=== PATIENT | female | born 1950 | race Hispanic/Latino ===

== ENCOUNTER 2016-06-24 09:06 | Inpatient (IN) | payer MEDICARE, BC ==
[~2016-06-24] VITALS: Ht 172.7 cm; Wt 82.3 kg
[2016-06-24] MEDS ORDERED: MORPHINE 4 MG/ML 1ML SYRINGE As Ordered ONE (10:19)
[2016-06-24] MEDS ORDERED: ONDANSETRON 4MG/2ML VIAL (J2405) As Ordered ONE ×2 (10:19→13:32)
[2016-06-24 10:20] LABS: BASO # 0.3 K/mm3 (0.0-0.2); BASO % 2.3 % (0.0-1.0); EOS # 0.1 K/mm3 (0.0-0.50); EOS % 1.1 % (0.0-3.0); LARGE UNSTAINED CELL # 0.1 K/mm3 (0.0-0.4); LARGE UNSTAINED CELL % 0.5 % (0.0-4.0); LYMPH # 0.1 K/mm3 (1.5-4.5); LYMPH % 0.8 % (24.0-44.0); MEAN CORPUSCULAR HEMOGLOBIN 32.3 pg (27.0-33.0); MEAN CORPUSCULAR HGB CONC 32.4 g/dl (32.0-36.5); MEAN CORPUSCULAR VOLUME 99.8 fl (80.0-96.0); MONO # 0.6 K/mm3 (0.0-0.8); MONO % 4.9 % (0.0-5.0); NEUTROPHILS # 10.3 K/mm3 (1.8-7.7); NEUTROPHILS % 90.4 % (36.0-66.0); PLATELET COUNT, AUTOMATED 203 k/mm3 (150-450); RED CELL DISTRIBUTION WIDTH 16.1 % (11.5-14.5); WHITE BLOOD COUNT 11.3 K/mm3 (4.0-10.0)
[2016-06-24 10:51] LABS: ALBUMIN 3.7 GM/DL (3.2-5.2); ALBUMIN/GLOBULIN RATIO 0.84 (1.00-1.93); BILIRUBIN,DIRECT 0.2 MG/DL (0.0-0.2); BILIRUBIN,TOTAL 0.6 MG/DL (0.2-1.0); CALCIUM LEVEL 8.7 MG/DL (8.8-10.2); CREATININE FOR GFR 9.13 MG/DL (0.55-1.02); GLOMERULAR FILTRATION RATE 4.6 (>45); TOTAL PROTEIN 8.1 GM/DL (6.4-8.2)
[2016-06-24 10:52] LABS: POTASSIUM SERUM 5.7 MEQ/L (3.5-5.1)
--- NOTE | 2016-06-24 11:54 | REP ---
CT abdomen pelvis without contrast 06/24/2016 Indication right flank pain, possible kidney stone Comparison: None Findings: There are moderate right and small left basilar pleural effusions. There is bibasilar compressive atelectasis, right greater than left. There is pulmonary venous hypertension in the included portions of the lungs. Cardiac silhouette is borderline in size and there are moderate coronary artery calcifications. There is also calcification versus prosthetic valve within the aortic root, incompletely included in view. Liver is enlarged 21.4 cm cranial caudal dimension, without fatty infiltration or focal lesion. Spleen, pancreas gallbladder are unremarkable. There is no biliary dilatation. Adrenal glands are normal. Diffuse atherosclerotic changes noted in the aorta, mesenteric ,and renal arteries consistent with history of chronic renal failure. Kidneys are moderately atrophic bilaterally and there are multiple bilateral renal cortical cysts. There is no hydronephrosis bilaterally or obstructing ureteral calculi. No pathologically enlarged retroperitoneal nodes. Stomach, small bowel are within normal limits. Appendix is not visualized and may be surgically absent. Bladder is contracted uterus is absent mild mural thickening is seen majority of the left colon and within the rectum with some sparing of rectosigmoid colon this is most likely secondary to some/under distension and less likely colitis. Soft tissue prominence is seen within the rectum/anus of 3 cm diameter. There is no free air or ascites Impression: Small to moderate right and small left pleural effusions, bibasilar atelectasis, right greater than left. Pulmonary t venous hypertension Kidneys without hydronephrosis or obstructing ureteral calculi bilaterally. There is moderate bilateral renal cortical atrophy and multiple bilateral renal cysts some of which are complex for which ultrasound evaluation may be considered. Mild mural thickening seen in the majority of left colon is most compatible with spasm/under distension. Mild colitis considered less likely. 3 cm area of soft tissue prominence within the rectum for which clinical follow-up is recommended. Hepatomegaly, liver 21.2 cm in length. Case discussed with Dr. Correia in the ED on 06/24/16 at 1140 am. Signed by Yuliya Mccabe MD 06/24/2016 11:46 A
[2016-06-24] MEDS ORDERED: ACETAMINOPHEN 325 MG TAB As Ordered ONE (13:26)
[2016-06-24] MEDS ORDERED: cefTRIAXone SOD 1 GM VIAL (J0696) As Ordered ONE (15:23)
[2016-06-24] MEDS ORDERED: TEMA15CA2 PO (16:44)
[2016-06-24] MEDS ORDERED: LOSA100T36 PO (16:44)
[2016-06-24] MEDS ORDERED: AMLO5TAB2 PO (16:44)
[2016-06-24] MEDS ORDERED: SIMV40TA2 PO (16:44)
[2016-06-24] MEDS ORDERED: HYDR25TAB PO (16:44)
[2016-06-24] MEDS ORDERED: LABE20TAB PO (16:44)
[2016-06-24] MEDS ORDERED: GLIP10TA6 PO (16:44)
[2016-06-24] MEDS ORDERED: SENS60TA PO (16:44)
[2016-06-24] MEDS ORDERED: RENATAB5 PO (16:44)
[2016-06-24] MEDS ORDERED: VELP5CHW PO (16:44)
--- NOTE | 2016-06-24 16:51 | EDDOCDS ---
Physician Documentation [facility] Name: Sylvia Aguirre Age: 66 yrs Sex: Female : 1950 Arrival Date: 06/24/2016 Time: 09:06 Bed 10 Private MD: Unknown, Family Dr Disposition: 06/24/16 15:18 Hospitalization ordered by Omid Valdez for Inpatient Admission. Preliminary diagnosis are Vomiting, Fever, unspecified. - Bed requested for PCU. - Status is Inpatient Admission. ck1 - Condition is Stable. - Problem is new. - Symptoms have improved. Historical: - Allergies: no known allergies; - Home Meds: 1. Felicita-Bobby 0.8 mg oral tab daily 2. glipizide 10 mg Oral tab 1 tab once daily 3. labetalol 200 mg Oral tab 2 tabs 2 times per day 4. Sensipar 60 mg oral tab 1 tab once daily 5. simvastatin 40 mg Oral tab 1 tab once daily 6. hydrochlorothiazide 25 mg Oral tab 1 tab once daily 7. losartan 100 mg oral tab 1 tab once daily 8. amlodipine 5 mg Oral tab 1 tab once daily - PMHx: Hypertension; High Cholesterol; Renal Failure with Dialysis; Diabetes - NIDDM: controlled; - PSHx: Stents, Coronary; Dialysis Graft Construction, Arm; ; left toe amputation; - Social history: Smoking status: Patient states was never smoker of tobacco. No barriers to communication noted, The patient speaks fluent Niuean, Speaks appropriately for age. - Family history: Not pertinent. - : The pt / caregiver states he / she is not on anticoagulants. Home medication list is obtained from the patient. - Exposure Risk Screening:: None identified. Vital Signs: 06/24 09:08 BP 228 / 87; Pulse 99; Resp 18 S; Temp 99.6(O); Pulse Ox 93% on R/A; Weight 79.38 kg / dd6 175 lbs (R); Height 5 ft. 8 in. (172.72 cm) (R); 09:25 BP 184 / 80 RA (man/); mlb1 11:19 BP 201 / 86; Pulse 92; Resp 16; Temp 100.0(O); Pulse Ox 91% on 2 lpm NC; Pain 7/10; ck1 13:07 Pulse 96 MON; Pulse Ox 93% ; ck1 13:21 BP 155 / 83 (auto/); ck1 13:21 Resp 16; Temp 101.3; ck1 14:47 BP 196 / 82 (auto/); ck1 14:47 Pulse 92 MON; Pulse Ox 90% ; ck1 15:02 BP 192 / 80 (auto/); ck1 15:02 Pulse 92 MON; Pulse Ox 92% ; ck1 15:16 Pulse 90 MON; Pulse Ox 94% ; ck1 15:17 BP 178 / 77 (auto/); ck1 15:32 BP 177 / 58 (auto/); ck1 15:32 Pulse 92 MON; Pulse Ox 100% ; ck1 15:42 BP 175 / 73 (auto/); ck1 15:42 Pulse 92 MON; Pulse Ox 95% ; ck1 15:45 Temp 99.8(O); ck1 15:46 Resp 18; Temp 99.8(O); Pulse Ox 97% 2 lpm ; ck1 15:46 Pulse 90 MON; Pulse Ox 96% ; ck1 15:47 BP 195 / 80 (auto/); ck1 16:01 Pulse 86 MON; Pulse Ox 100% ; ck1 16:02 BP 172 / 77 (auto/); ck1 16:17 BP 162 / 72 (auto/); ck1 16:18 Pulse 88 MON; Pulse Ox 94% ; ck1 16:32 Pulse 86 MON; Pulse Ox 100% ; ck1 16:46 BP 159 / 73; Pulse 86; Resp 18; Temp 99.3(O); Pulse Ox 98% on 1 lpm NC; Pain 0/10; ck1 09:08 Body Mass Index 26.61 (79.38 kg, 172.72 cm) dd6 MDM: 09:55 Undress patient appropriately for examination ordered. sd1 09:56 Amylase Ordered. EDMS 09:56 Basic Metabolic Profile Ordered. EDMS 09:56 CBC with Diff Ordered. EDMS 09:56 Lipase Ordered. EDMS 09:56 Liver Profile Ordered. EDMS 09:56 NOTHING BY MOUTH+DIET ordered. EDMS 09:56 ECG WITH READING ER PHYS+CARDIAG ordered. EDMS 10:14 morphine 4 mg IVP every 15 minutes; Document pain score/vitals after each dose (Hold if sd1 SBP < 90mmHg) x2 ordered. 10:14 Ondansetron 4 mg IVP once ordered. sd1 10:14 CT ABD & PELVIS: No Contrast Ordered. EDMS 10:27 CBC with Diff Reviewed. sd1 10:48 Financial registration complete. pm4 10:54 Basic Metabolic Profile Reviewed. sd1 10:54 Liver Profile Reviewed. sd1 10:54 Amylase Reviewed. sd1 10:54 Lipase Reviewed. sd1 11:39 [facility] Payment Agreement was scanned into [employer] and attached to record. pm4 13:08 CT ABD & PELVIS: No Contrast Reviewed. sd1 13:24 Acetaminophen Tablet 650 mg PO once ordered. sd1 13:31 -Blood Culture (Adults Only), peripheral from different site, or from device/port/PICC sd1 etc. if present ordered. 13:31 Ondansetron 4 mg IVP once ordered. sd1 13:32 Lactic Acid (Owens tube on ice) Ordered. EDMS 13:32 -Blood Culture Ordered. EDMS 13:32 UA Ordered. EDMS 13:32 Urine Culture Ordered. EDMS 13:58 -Blood Culture (Adults Only), peripheral from different site, or from device/port/PICC jlf etc. if present complete. 14:00 BLOOD CULTURES Ordered. EDMS 15:03 Lactic Acid (Owens tube on ice) Reviewed. sd1 15:03 UA Reviewed. sd1 15:17 cefTRIAXone 1 grams IVPB once over 30 mins; dilute in 50mL of NS or D5W ordered. sd1 15:35 Admission / Observation Status ordered. EDMS Administered Medications: 10:25 Drug: morphine 4 mg [morphine 4 mg/mL intravenous cartridge (1 mL)] Route: IVP; Site: ck1 right antecubital; 11:19 Follow up: BP 201 / 86; Pulse 92 bpm; Resp 16 bpm; Temp 100.0 Oral; Pulse Ox 91% 2 lpm ck1 Nasal Cannula; Pain 7/10 Adult; Response: Confirmed pt not driving.; No Adverse Reaction; Pain is decreased 10:25 Drug: Ondansetron 4 mg [ondansetron HCl 2 mg/mL intravenous solution (2 mL)] Route: ck1 IVP; Site: right antecubital; 13:36 Drug: Ondansetron 4 mg [ondansetron HCl 2 mg/mL intravenous solution (2 mL)] Route: ck1 IVP; Site: right antecubital; 14:14 Drug: Acetaminophen 650 mg [acetaminophen 325 mg tablet (2 tabs)] Route: PO; hs1 15:45 Follow up: Temp 99.8 Oral; Response: Temperature is decreased ck1 15:32 Drug: cefTRIAXone 1 grams [ceftriaxone 1 gram solution for injection] Route: IVPB; ck1 Infused Over: 30 mins; Site: right antecubital; 16:47 Follow up: IV Status: Completed infusion ck1 Signatures: Dispatcher [employer] EDZita Antonio MD MD sd1 Cici Arredondo, [employer] lbd Ronald Thibodeaux RN RN mlb1 Angelica Fry RN RN ck1 Maurice Guillaume, DRY PRESS OPERATOR DRY PRESS OPERATOR jlf Nnamdi Jimenez, Reg Reg pm4 Janell Delgado RN hs1 The chart was reviewed and I authenticate all verbal orders and agree with the evaluation and treatment provided.Attachments: 11:39 [facility] Payment Agreement pm4 MTDD
--- NOTE | 2016-06-24 16:51 | EDDOCDS ---
Nurse's Notes [facility] Name: Sylvia Aguirre Age: 66 yrs Sex: Female : 1950 Arrival Date: 06/24/2016 Time: 09:06 Bed 10 Private MD: Angel, Family Dr Diagnosis: Vomiting;Fever, unspecified Presentation: 06/24 09:15 Presenting complaint: Patient states: Low back pain and nausea began this am. Acute mlb1 neurological deficits are not present. Mechanism of Injury: No Mechanism of Injury. Adult Sepsis Screening: The patient does not have new or worsening altered mentation. Patient's respiratory rate is less than 22. Systolic blood pressure is greater than 100. Patient has a qSOFA score of 0- Negative Sepsis Screen. Suicide/Homicide risk assessment- the patient denies having any suicidal and/or homicidal ideations and does not present with any other emotional, behavioral or mental health complaints. Status: Patient is not a service specialist or dependent. Transition of care: patient was not received from another setting of care. 09:15 Acuity: SG Level 3 mlb1 09:15 Method Of Arrival: Walkin/Carried/Asstd mlb1 Triage Assessment: 09:21 General: Appears in no apparent distress, Behavior is appropriate for age, cooperative. mlb1 Pain: Location: low back area Pain currently is 8 out of 10 on a pain scale. Pt Declines HIV testing. GI: Reports nausea, vomiting. Historical: - Allergies: no known allergies; - Home Meds: 1. Felicita-Bobby 0.8 mg oral tab daily 2. glipizide 10 mg Oral tab 1 tab once daily 3. labetalol 200 mg Oral tab 2 tabs 2 times per day 4. Sensipar 60 mg oral tab 1 tab once daily 5. simvastatin 40 mg Oral tab 1 tab once daily 6. hydrochlorothiazide 25 mg Oral tab 1 tab once daily 7. losartan 100 mg oral tab 1 tab once daily 8. amlodipine 5 mg Oral tab 1 tab once daily - PMHx: Hypertension; High Cholesterol; Renal Failure with Dialysis; Diabetes - NIDDM: controlled; - PSHx: Stents, Coronary; Dialysis Graft Construction, Arm; ; left toe amputation; - Social history: Smoking status: Patient states was never smoker of tobacco. No barriers to communication noted, The patient speaks fluent Urdu, Speaks appropriately for age. - Family history: Not pertinent. - : The pt / caregiver states he / she is not on anticoagulants. Home medication list is obtained from the patient. - Exposure Risk Screening:: None identified. Screenin:14 Screening information is obtained from the patient. Fall risk: No risks identified. ck1 Assistance ADL's: requires no assistance with activities of daily living. Abuse/DV Screen: The patient / caregiver reports he/she is: not in a situation that causes fear, pain or injury. Nutritional screening: No deficits noted. Advance Directives: Currently, there is no health care proxy. home support is adequate. Assessment: 10:14 General: Appears in no apparent distress, comfortable, Behavior is appropriate for age, ck1 cooperative. Pain: Location: right flank Pain currently is 8 out of 10 on a pain scale. Neurological: Level of Consciousness is awake, alert, obeys commands, Oriented to person, place, time. Respiratory: Respiratory effort is unlabored, Respiratory pattern is regular, symmetrical. GI: Reports nausea. Derm: Skin is intact, is healthy with good turgor, Skin is pink, warm & dry. Musculoskeletal: Circulation, motion, and sensation intact Range of motion intact in all extremities. 11:20 General: Appears to be sleeping. Behavior is appropriate for age, cooperative, quiet. ck1 Pain: Location: right flank Pain currently is 7 out of 10 on a pain scale. Neurological: Level of Consciousness is awake, alert, obeys commands, Oriented to person, place, time. Respiratory: Respiratory effort is unlabored, Respiratory pattern is regular, symmetrical. GI: Reports nausea, Denies vomiting. Derm: Skin is intact, Skin is pink, warm & dry. 12:20 General: Appears in no apparent distress, comfortable, Behavior is appropriate for age, ck1 cooperative, quiet. Neurological: Level of Consciousness is awake, alert, obeys commands, Oriented to person, place, time. Respiratory: Respiratory effort is unlabored, Respiratory pattern is regular, symmetrical. GI: Reports nausea, Denies vomiting. Derm: Skin is intact, is healthy with good turgor, Skin is pink, warm & dry. Musculoskeletal: Circulation, motion, and sensation intact Range of motion intact in all extremities. 14:16 General: Appears in no apparent distress, Behavior is appropriate for age, cooperative, hs1 Pt resting in stretcher tolerating Tylenol at present. States nausea dissipated. . 14:49 General: Appears in no apparent distress, to be sleeping. Behavior is appropriate for ck1 age, cooperative, quiet. Pain: Location: right flank Pain currently is 5 out of 10 on a pain scale. Neurological: Level of Consciousness is awake, alert, obeys commands, Oriented to person, place, time. Respiratory: Respiratory effort is unlabored, Respiratory pattern is regular, symmetrical. GI: Denies nausea. Derm: Skin is intact, Skin is pink, warm & dry. 15:47 General: Appears in no apparent distress, comfortable, Behavior is appropriate for age, ck1 cooperative. Pain: Location: right flank Pain currently is 5 out of 10 on a pain scale. Neurological: Level of Consciousness is awake, alert, obeys commands, Oriented to person, place, time. Cardiovascular: Rhythm is sinus rhythm Chest pain is denied. Respiratory: Respiratory effort is unlabored, Respiratory pattern is regular, symmetrical. GI: Reports anorexia, nausea. Derm: Skin is intact, Skin is pink, warm & dry. Musculoskeletal: Circulation, motion, and sensation intact Range of motion intact in all extremities. 16:49 General: Appears in no apparent distress, comfortable, Behavior is appropriate for age, ck1 cooperative. Pain: Denies pain. Neurological: Level of Consciousness is awake, alert, obeys commands, Oriented to person, place, time. Cardiovascular: Rhythm is sinus rhythm. Respiratory: Respiratory effort is unlabored, Respiratory pattern is regular, symmetrical. GI: No deficits noted. Derm: Skin is pink, warm & dry. Musculoskeletal: Circulation, motion, and sensation intact Range of motion intact in all extremities. Vital Signs: 09:08 BP 228 / 87; Pulse 99; Resp 18 S; Temp 99.6(O); Pulse Ox 93% on R/A; Weight 79.38 kg dd6 (R); Height 5 ft. 8 in. (172.72 cm) (R); 09:25 BP 184 / 80 RA (man/); mlb1 11:19 BP 201 / 86; Pulse 92; Resp 16; Temp 100.0(O); Pulse Ox 91% on 2 lpm NC; Pain 7/10; ck1 13:07 Pulse 96 MON; Pulse Ox 93% ; ck1 13:21 BP 155 / 83 (auto/); ck1 13:21 Resp 16; Temp 101.3; ck1 14:47 BP 196 / 82 (auto/); ck1 14:47 Pulse 92 MON; Pulse Ox 90% ; ck1 15:02 BP 192 / 80 (auto/); ck1 15:02 Pulse 92 MON; Pulse Ox 92% ; ck1 15:16 Pulse 90 MON; Pulse Ox 94% ; ck1 15:17 BP 178 / 77 (auto/); ck1 15:32 BP 177 / 58 (auto/); ck1 15:32 Pulse 92 MON; Pulse Ox 100% ; ck1 15:42 BP 175 / 73 (auto/); ck1 15:42 Pulse 92 MON; Pulse Ox 95% ; ck1 15:45 Temp 99.8(O); ck1 15:46 Resp 18; Temp 99.8(O); Pulse Ox 97% 2 lpm ; ck1 15:46 Pulse 90 MON; Pulse Ox 96% ; ck1 15:47 BP 195 / 80 (auto/); ck1 16:01 Pulse 86 MON; Pulse Ox 100% ; ck1 16:02 BP 172 / 77 (auto/); ck1 16:17 BP 162 / 72 (auto/); ck1 16:18 Pulse 88 MON; Pulse Ox 94% ; ck1 16:32 Pulse 86 MON; Pulse Ox 100% ; ck1 16:46 BP 159 / 73; Pulse 86; Resp 18; Temp 99.3(O); Pulse Ox 98% on 1 lpm NC; Pain 0/10; ck1 09:08 Body Mass Index 26.61 (79.38 kg, 172.72 cm) dd6 Vitals: 09:08 Log In Time: June 24, 2016 at 09:06. dd6 ED Course: 09:08 Patient visited by Dipesh Elizondo PCA. dd6 09:08 Unknown, Family Dr is Private Physician. dd6 09:08 Patient moved to Waiting dd6 09:09 Patient moved to Pre RCE dd6 09:15 Patient visited by Ronald Thibodeaux, YENNIFER. mlb1 09:16 Triage Initiated mlb1 09:21 Patient visited by Ronald Thibodeaux, YENNIFER. mlb1 09:21 Patient moved to Triage 1 mlb1 09:29 Patient moved to 10 ct3 09:52 Patient visited by Maurice Guillaume PCA. jlf 09:58 EKG done. (by ED staff). Reviewed by Zita Echeverria MD. jlf 10:02 Patient visited by Maurice Guillaume PCA. jlf 10:02 Patient visited by Maurice Guillaume PCA. jlf 10:07 Zita Echeverria MD is Attending Physician. sd1 10:07 Patient visited by Zita Echeverria MD. sd1 10:13 Amylase Sent. ck1 10:13 Basic Metabolic Profile Sent. ck1 10:13 CBC with Diff Sent. ck1 10:13 Lipase Sent. ck1 10:14 The patient / caregiver is instructed regarding the plan of care and ED course. ck1 10:14 Liver Profile Sent. ck1 10:15 Inserted saline lock: 20 gauge in right antecubital area and blood collected. The ck1 patient tolerated the procedure well. 10:24 Patient visited by Angelica Fry RN. ck1 10:40 Patient visited by Angelica Fry RN. ck1 11:18 Angelica Fry RN is Primary Nurse. ck1 11:19 Patient visited by Angelica Fry RN. ck1 11:20 O2 via nasal cannula \T\ 2L/min. ck1 11:36 Patient name changed from Sylvia\S\\S\Aguirre\S\ to Sylvia\S\ \S\Aguirre. EDMS 11:39 [facility] Payment Agreement was scanned into [employer] and attached to record. pm4 11:50 Patient visited by Angelica Fry RN. ck1 12:18 Patient visited by Maurice Guillaume PCA. jlf 12:37 CT ABD & PELVIS: No Contrast Returned. EDMS 12:47 Primary Nurse role handed off by Angelica Fry,YENNIFER mk4 12:52 Angelica Fry RN is Primary Nurse. ck1 12:52 Patient visited by Angelica Fry RN. ck1 13:08 Jelena Hogan MD is Referral Physician. sd1 13:25 No procedures done that require assistance. ck1 13:31 Patient visited by Angelica Fry RN. ck1 13:57 Urine Culture Sent. jml1 14:15 Patient visited by Angelica Fry RN. ck1 14:37 Patient visited by Angelica Fry RN. ck1 14:43 BLOOD CULTURES Sent. jlf 14:49 Patient visited by Angelica Fry RN. ck1 14:49 O2 via nasal cannula \T\ 4L/min. ck1 15:05 Response to O2 therapy: Other 92% on 4L via NC. ck1 15:14 Patient visited by Angelica Fry RN. ck1 15:18 Omid Valdez DO is Hospitalizing Provider. sd1 15:45 Patient visited by Angelica Fry RN. ck1 Administered Medications: 10:25 Drug: morphine 4 mg [morphine 4 mg/mL intravenous cartridge (1 mL)] Route: IVP; Site: ck1 right antecubital; 11:19 Follow up: BP 201 / 86; Pulse 92 bpm; Resp 16 bpm; Temp 100.0 Oral; Pulse Ox 91% 2 lpm ck1 Nasal Cannula; Pain 7/10 Adult; Response: Confirmed pt not driving.; No Adverse Reaction; Pain is decreased 10:25 Drug: Ondansetron 4 mg [ondansetron HCl 2 mg/mL intravenous solution (2 mL)] Route: ck1 IVP; Site: right antecubital; 13:36 Drug: Ondansetron 4 mg [ondansetron HCl 2 mg/mL intravenous solution (2 mL)] Route: ck1 IVP; Site: right antecubital; 14:14 Drug: Acetaminophen 650 mg [acetaminophen 325 mg tablet (2 tabs)] Route: PO; hs1 15:45 Follow up: Temp 99.8 Oral; Response: Temperature is decreased ck1 15:32 Drug: cefTRIAXone 1 grams [ceftriaxone 1 gram solution for injection] Route: IVPB; ck1 Infused Over: 30 mins; Site: right antecubital; 16:47 Follow up: IV Status: Completed infusion ck1 Order Results: Lab Order: Amylase; SPEC'M 06/24/16 10:09 Test: AMYLASE; Value: 35; Range: 25-115; Units: U/L; Status: F Lab Order: Basic Metabolic Profile; SPEC'M 06/24/16 10:09 Test: GLUCOSE, FASTING; Value: 203; Range: 80-110; Abnormal: Above high normal; Units: MG/DL; Status: F Test: BLOOD UREA NITROGEN; Value: 56; Range: 7-18; Abnormal: Above high normal; Units: MG/DL; Status: F Test: CREATININE FOR GFR; Value: 9.13; Range: 0.55-1.02; Abnormal: Above high normal; Units: MG/DL; Status: F Test: GLOMERULAR FILTRATION RATE; Value: 4.6; Range: >45; Abnormal: Below low normal; Status: F Test: SODIUM LEVEL; Value: 136; Range: 136-145; Units: MEQ/L; Status: F Test: POTASSIUM SERUM; Value: 5.7; Range: 3.5-5.1; Abnormal: Above high normal; Units: MEQ/L; Status: F Test: CHLORIDE LEVEL; Value: 98; Range: 98-107; Units: MEQ/L; Status: F Test: CARBON DIOXIDE LEVEL; Value: 26; Range: 21-32; Units: MEQ/L; Status: F Test: ANION GAP; Value: 12; Range: 8-16; Units: MEQ/L; Status: F Test: CALCIUM LEVEL; Value: 8.7; Range: 8.8-10.2; Abnormal: Below low normal; Units: MG/DL; Status: F Test Note: ; Units are mL/min/1.73 m2 Chronic Kidney Disease Staging per NKF: Stage I & II GFR >=60 Normal to Mildly Decreased Stage III GFR 30-59 Moderately Decreased Stage IV GFR 15-29 Severely Decreased Stage V GFR <15 Very Little GFR Left ESRD GFR <15 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 Lab Order: CBC with Diff; SPEC'M 06/24/16 10:09 Test: WHITE BLOOD COUNT; Value: 11.3; Range: 4.0-10.0; Abnormal: Above high normal; Units: K/mm3; Status: F Test: RED BLOOD COUNT; Value: 3.48; Range: 4.00-5.40; Abnormal: Below low normal; Units: M/mm3; Status: F Test: HEMOGLOBIN; Value: 11.3; Range: 12.0-16.0; Abnormal: Below low normal; Units: g/dl; Status: F Test: HEMATOCRIT; Value: 34.8; Range: 36.0-47.0; Abnormal: Below low normal; Units: %; Status: F Test: MEAN CORPUSCULAR VOLUME; Value: 99.8; Range: 80.0-96.0; Abnormal: Above high normal; Units: fl; Status: F Test: MEAN CORPUSCULAR HEMOGLOBIN; Value: 32.3; Range: 27.0-33.0; Units: pg; Status: F Test: MEAN CORPUSCULAR HGB CONC; Value: 32.4; Range: 32.0-36.5; Units: g/dl; Status: F Test: RED CELL DISTRIBUTION WIDTH; Value: 16.1; Range: 11.5-14.5; Abnormal: Above high normal; Units: %; Status: F Test: PLATELET COUNT, AUTOMATED; Value: 203; Range: 150-450; Units: k/mm3; Status: F Test: NEUTROPHILS %; Value: 90.4; Range: 36.0-66.0; Abnormal: Above high normal; Units: %; Status: F Test: LYMPH %; Value: 0.8; Range: 24.0-44.0; Abnormal: Below low normal; Units: %; Status: F Test: MONO %; Value: 4.9; Range: 0.0-5.0; Units: %; Status: F Test: EOS %; Value: 1.1; Range: 0.0-3.0; Units: %; Status: F Test: BASO %; Value: 2.3; Range: 0.0-1.0; Abnormal: Above high normal; Units: %; Status: F Test: LARGE UNSTAINED CELL %; Value: 0.5; Range: 0.0-4.0; Units: %; Status: F Test: NEUTROPHILS #; Value: 10.3; Range: 1.8-7.7; Abnormal: Above high normal; Units: K/mm3; Status: F Test: LYMPH #; Value: 0.1; Range: 1.5-4.5; Abnormal: Below low normal; Units: K/mm3; Status: F Test: MONO #; Value: 0.6; Range: 0.0-0.8; Units: K/mm3; Status: F Test: EOS #; Value: 0.1; Range: 0.0-0.50; Units: K/mm3; Status: F Test: BASO #; Value: 0.3; Range: 0.0-0.2; Abnormal: Above high normal; Units: K/mm3; Status: F Test: LARGE UNSTAINED CELL #; Value: 0.1; Range: 0.0-0.4; Units: K/mm3; Status: F Lab Order: Lipase; [facility] 06/24/16 10:09 Test: LIPASE; Value: 119; Range: 73-393; Units: U/L; Status: F Lab Order: Liver Profile; [facility] 10[facility]09 Test: AST/SGOT; Value: 12; Range: 15-37; Abnormal: Below low normal; Units: U/L; Status: F Test: ALT/SGPT; Value: 22; Range: 12-78; Units: U/L; Status: F Test: ALKALINE PHOSPHATASE; Value: 177; Range: 45-117; Abnormal: Above high normal; Units: U/L; Status: F Test: BILIRUBIN,TOTAL; Value: 0.6; Range: 0.2-1.0; Units: MG/DL; Status: F Test: BILIRUBIN,DIRECT; Value: 0.2; Range: 0.0-0.2; Units: MG/DL; Status: F Test: TOTAL PROTEIN; Value: 8.1; Range: 6.4-8.2; Units: GM/DL; Status: F Test: ALBUMIN; Value: 3.7; Range: 3.2-5.2; Units: GM/DL; Status: F Test: ALBUMIN/GLOBULIN RATIO; Value: 0.84; Range: 1.00-1.93; Abnormal: Below low normal; Status: F Lab Order: Lactic Acid (Owens tube on ice); 06/24/16 13:49 Test: LACTIC ACID LEVEL, LACTATE; Value: 2.1; Range: 0.4-2.0; Abnormal: Above high normal; Units: MMOL/L; Status: F Lab Order: UA; 06/24/16 13:49 Test: APPEARANCE, URINE; Value: CLEAR; Range: CLEAR; Status: F Test: COLOR, URINE; Value: YELLOW; Range: YELLOW; Status: F Test: PH,URINE; Value: 8.0; Range: 5.0-9.0; Units: UNITS; Status: F Test: SPECIFIC GRAVITY URINE AUTO; Value: 1.007; Range: 1.002-1.035; Status: F Test: PROTEIN, URINE AUTO; Value: 3+; Range: NEGATIVE; Abnormal: Above high normal; Units: mg/dL; Status: F Test: GLUCOSE, URINE (UA) AUTO; Value: 3+; Range: NEGATIVE; Abnormal: Above high normal; Units: mg/dL; Status: F Test: KETONE, URINE AUTO; Value: NEGATIVE; Range: NEGATIVE; Units: mg/dL; Status: F Test: UROBILINOGEN, URINE AUTO; Value: 0.2; Range: 0.0-2.0; Units: mg/dL; Status: F Test: BILIRUBIN, URINE AUTO; Value: NEGATIVE; Range: NEGATIVE; Status: F Test: NITRITE, URINE AUTO; Value: NEGATIVE; Range: NEGATIVE; Status: F Test: LEUKOCYTE ESTERASE, URINE AUTO; Value: TRACE; Range: NEGATIVE; Abnormal: Above high normal; Status: F Test: BLOOD, URINE BLOOD; Value: NEGATIVE; Range: NEGATIVE; Status: F Test: WBC, URINE AUTO; Value: 1; Range: 0-3; Units: /HPF; Status: F Test: RBC, URINE AUTO; Value: 1; Range: 0-3; Units: /HPF; Status: F Test: BACTERIA, URINE AUTO; Value: 1+; Range: NEGATIVE; Abnormal: Above high normal; Status: F Test: SQUAMOUS EPITHELIAL CELL UR AU; Value: 3; Range: 0-6; Units: /HPF; Status: F Test: HYALINE CAST, URINE AUTO; Value: 0; Range: 0-1; Units: /LPF; Status: F Radiology Order: CT ABD & PELVIS: No Contrast Test: CT ABD & PELVIS: No Contrast REASON FOR EXAMINATION: right FP ?stone; CT abdomen pelvis without contrast 06/24/2016; ; Indication right flank pain, possible kidney stone; ; Comparison: None; ; Findings: There are moderate right and small left basilar pleural effusions.; There is bibasilar compressive atelectasis, right greater than left. There is; pulmonary venous hypertension in the included portions of the lungs. Cardiac; silhouette is borderline in size and there are moderate coronary artery; calcifications. There is also calcification versus prosthetic valve within the; aortic root, incompletely included in view.; ; Liver is enlarged 21.4 cm cranial caudal dimension, without fatty infiltration or; focal lesion. Spleen, pancreas gallbladder are unremarkable. There is no; biliary dilatation. Adrenal glands are normal. Diffuse atherosclerotic changes; noted in the aorta, mesenteric ,and renal arteries consistent with history of; chronic renal failure. Kidneys are moderately atrophic bilaterally and there are; multiple bilateral renal cortical cysts. There is no hydronephrosis bilaterally; or obstructing ureteral calculi. No pathologically enlarged retroperitoneal; nodes. Stomach, small bowel are within normal limits. Appendix is not; visualized and may be surgically absent.; ; Bladder is contracted uterus is absent mild mural thickening is seen majority of; the left colon and within the rectum with some sparing of rectosigmoid colon this; is most likely secondary to some/under distension and less likely colitis. Soft; tissue prominence is seen within the rectum/anus of 3 cm diameter. There is no; free air or ascites; ; Impression:; ; Small to moderate right and small left pleural effusions, bibasilar atelectasis,; right greater than left. Pulmonary t venous hypertension; ; Kidneys without hydronephrosis or obstructing ureteral calculi bilaterally.; There is moderate bilateral renal cortical atrophy and multiple bilateral renal; cysts some of which are complex for which ultrasound evaluation may be; considered.; ; Mild mural thickening seen in the majority of left colon is most compatible with; spasm/under distension. Mild colitis considered less likely. 3 cm area of soft; tissue prominence within the rectum for which clinical follow-up is recommended.; ; Hepatomegaly, liver 21.2 cm in length.; ; Case discussed with Dr. Correia in the ED on 06/24/16 at 1140 am.; ; ; Signed by; Yuliya Mccabe MD 06/24/2016 11:46 A; Outcome: 10:40 CT Study completed. ck1 13:09 Discharge ordered by Provider. sd1 15:18 Decision to Hospitalize by Provider. sd1 16:17 Admission hand-off: Report Faxed Fax receipt verified by Diaz Solano RN. ck1 16:48 Discharge Assessment:. The following High Risk Discharge criteria are identified: None. ck1 Admitted to PCU accompanied by nurse, accompanied by tech, via stretcher, with oxygen, on monitor, with chart. Condition: stable. 16:48 Property :Personal belongings accompany Pt. [facility] 16:48 Discharge Assessment: patient administered narcotics - yes. Patient was admitted to the [facility] hospital or transferred to another facility. 16:49 Patient left the ED. [facility] Signatures: Dispatcher [employer] EDZita Antonio MD MD sd1 Ronald Thibodeaux RN RN mlb1 Angelica Fry RN RN [facility] Dipesh Elizondo, CONSUMER CREDIT COUNSELOR CONSUMER CREDIT COUNSELOR dd6 Janell Delgado RN RN hs1 Clementine Vincent, CONSUMER CREDIT COUNSELOR CONSUMER CREDIT COUNSELOR ct3 Tray Gage jml1 Jodi Paul RN RN mk4 Maurice Guillaume, CONSUMER CREDIT COUNSELOR CONSUMER CREDIT COUNSELOR jlf Nnamdi Jimenez, Reg Reg pm4 Corrections: (The following items were deleted from the chart) 16:48 13:25 Discharge Assessment: Patient awake, alert and oriented x 3. No cognitive and/or ck1 functional deficits noted. Patient verbalized understanding of disposition instructions. patient administered narcotics - yes. Pt provided with safe discharge [facility] :48 13:25 Property :Personal belongings accompany Pt. [place] [id number] 13:25 Condition: stable [place] [id number] 13:25 The following High Risk Discharge criteria are identified: None. Discharged to [facility] home ambulatory, with family, [facility] 48 13:25 Discharge instructions given to patient, Instructed on discharge instructions, [facility] follow up and referral plans. medication usage, Demonstrated understanding of instructions, medications, Pt was receptive of discharge instructions/ teaching. [facility] 49 16:48 Discharge Assessment: patient administered narcotics - no [place] [id number] MTDD
[2016-06-24 17:10] VITALS: BP 151/72
[2016-06-24] MEDS ORDERED: GLUCOSE 4 GM CHEW TABLET PO PRN (17:45)
[2016-06-24] MEDS ORDERED: GLUCAGON FOR INJ 1 MG VIAL (J1610) SC PRN (17:45)
[2016-06-24] MEDS ORDERED: DEXTROSE 50% 50 ML SYRINGE IV PRN (17:45)
[2016-06-24] MEDS ORDERED: METOPROLOL 5 MG/5 ML VIAL IV SCH (18:00)
[2016-06-24 18:22] LABS: MAGNESIUM LEVEL 2.3 MG/DL (1.8-2.4)
[2016-06-24] MEDS: HumaLOG INSULIN (NovoLOG) PER UNIT SC SCH ×2 (18:24→21:00)
[2016-06-24] MEDS: PANTOPRAZOLE 40MG TAB (PROTONIX) PO SCH (18:25)
[2016-06-24] MEDS: ONDANSETRON 4MG/2ML VIAL (J2405) IV PRN (19:30)
[2016-06-24] MEDS: ACETAMINOPHEN TAB 650MG DOSE (2X325MG) PO PRN (19:45)
--- NOTE | 2016-06-24 19:59 | ECGEPIP ---
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
[2016-06-24 20:00] VITALS: BP 165/74
--- NOTE | 2016-06-24 20:58 | HPE ---
DATE OF ADMISSION: 06/24/2016 Time: 1600 PRIMARY CARE PROVIDER: Dr. Terry, [place] BILLING SERVICES MANAGER: Dr. Beltran CHIEF COMPLAINT: Left upper back pain with nausea. HISTORY OF PRESENT ILLNESS: 66-year-old female with past medical history of coronary artery disease, status post stent placement, end-stage renal disease on dialysis, non-insulin dependent type 2 diabetes, severe hypertension, hemorrhoids and polyps, hyperlipidemia, presented with left upper back pain, started two days ago. Per patient initially the pain was at mid back then it radiated to the left upper back and the pain was getting worse over the past two days. It was sharp and stabbing and she was in so much pain that she also felt nauseous. In addition, she stated that her nausea is also associated with food and she does not want to eat anything. She also admits to gagging up white clear phlegm. However, no overt vomiting. She does have diarrhea at baseline. Per patient she has diarrhea once every few days for the past few years at least and the last diarrhea was on Wednesday. Per patient it was not very liquidy. Otherwise, the patient also admits to chills, however, denies any fever. Denies any chest pain, trouble breathing. In the emergency room the patient was on 2 liters of oxygen, however, her saturation was dropping to as low as 70s, however, when I tried different finger, the oxygen actually went up to about 99%. Therefore, the patient's dropping oxygen is likely due to poor circulation. The patient does have a history of peripheral arterial disease and had stent placement. Otherwise the patient recently moved from [place] to see her daughter here. Denies any sick contacts, however. ALLERGIES: No known drug allergies. HOME MEDICATIONS: - Amlodipine 5 mg one tablet by mouth every daily - Sensipar 60 mg one tablet by mouth daily - glipizide 10 mg one tablet by mouth daily - hydrochlorothiazide 25 mg one tablet by mouth daily - labetalol 400 mg one tablet by mouth twice a day - losartan 100 mg one tablet by mouth daily - Velphoro 1500 mg one tablet by mouth with meals - Felicita-Bobby one tablet by mouth daily - simvastatin 40 mg one tablet by mouth daily - temazepam 15 mg one tablet by mouth nightly PAST MEDICAL HISTORY: 1. Coronary artery disease, status post stent placement in 2014 and 2013. 2. Peripheral arterial disease with stent placement in the lower extremity. 3. End-stage renal disease, on hemodialysis Wednesday, Wednesday, Wednesday. Last hemodialysis was on Wednesday. The patient has not had dialysis today yet. 4. Non-insulin dependent type 2 diabetes. 5. Hyperlipidemia. 6. Severe hypertension, on four different blood pressure medications. 7. Hemorrhoids. 8. Colonoscopy. The last one was 10 years ago. 9. Chronic anemia. On iron supplement. PAST SURGICAL HISTORY: 1. Cardiac stent placement and also stents in the lower extremity. 2. Left arm dialysis graft placement. 3. Left toe amputation. 4. section. SOCIAL HISTORY: The patient currently lives with daughter. Denies any smoking, drinking or recreational drug use. FAMILY HISTORY: Mother had diabetes and renal failure. REVIEW OF SYSTEMS: GENERAL: The patient denies any weight changes, any fever, any sick contact. Any night sweats. The patient did travel from [place]. HEENT: Denies any changes with vision, hearing or taste. Denies any cough. Denies any sore throat. CARDIOVASCULAR: Denies any chest pain, trouble breathing. PULMONARY: Denies any trouble breathing. GASTROINTESTINAL (GI): Admits to feeling nauseous and coughing up clear fluid. However, no overt vomiting. 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 However, no blood in the stool per patient. The patient stated that when she has constipation sometimes she will see a little bit of blood on the paper. Otherwise, has been clear recently. The patient stated that two days ago she had two loose stools, wheelchair has resolved. GENITOURINARY (): The patient is on hemodialysis, however, still makes a little bit of urine. Denies any changes recently. MUSCULOSKELETAL: Denies any pain anywhere. ENDOCRINE: Admits to type 2 diabetes. Denies any heat or cold intolerance. HEMATOLOGY: The patient does have colonoscopy done more than 10 years ago, however, she was afraid to go for followup due to it will take long for the bowel prep and she has dialysis three times a week. I have convinced her to go get a colonoscopy done when she does go back to [place]. PSYCHIATRIC: Denies any anxiety, depression. NEUROLOGICAL: Denies any weakness on one side of her body. PHYSICAL EXAMINATION: Vital signs: Blood pressure was 155/83, pulse 92, respirations 16, temperature was 101.3, elevated and oxygen was saturating at 90 % on 2 liters of nasal cannula, however, when I remeasured it myself taking the oxygen off, putting the oximetry on the right finger, the patient was actually saturating at above 92%. The patient's weight is 79 kg. Height 172 cm. GENERAL: The patient is an obese elderly female who is alert, awake and oriented times three. Does not appear to be in distress. Resting comfortably in bed with head elevated at 30 degrees. HEENT: Normocephalic, atraumatic. Extraocular muscles intact. Mucous moist. Neck supple. No neck lymphadenopathy. CARDIOVASCULAR: Regular rate and rhythm, S1, S2. There were 3 out of 6 systolic heart murmur. LUNGS: Clear to auscultation bilaterally. No wheezes, rales or rhonchi. ABDOMEN: Positive bowel sounds, soft, nontender, nondistended. No peritoneal signs. No ecchymosis. EXTREMITIES: No edema, clubbing or cyanosis. The patient does have an arteriovenous (AV) fistula on the left arm. SKIN: Warm and dry. NEUROLOGICAL: Cranial nerves II though XII intact. No focal neurological deficits. LABS: WBC 11.3, hemoglobin 11.3, hematocrit 34.8 with platelet count of 203. MCV was 99.8. Sodium 135, potassium 3.7, chloride 98, bicarbonate 26, BUN was 56, creatinine 9.13. GFR 4.6. Fasting glucose 203. Lactic acid 2.1. Calcium 8.7. Total bilirubin 0.6, direct bilirubin 0.2, AST 12, ALT 22, alkaline phosphatase 177. Total protein 81, albumin 3.7, lipase 119. Urinalysis shows 3+ protein, 3+ glucose, trace leukocytes, plus 1+ bacteria. Blood culture times two are pending. Urine culture is pending. The patient did receive a CT of abdomen and pelvis without contrast in the emergency room and it shows a small to moderate right and small left pleural effusion, bilateral atelectasis, right greater than left. Pulmonary venous hypertension, kidneys without hydronephrosis, obstructing ureteral calculi bilaterally, however, there is moderate bilateral renal cortical atrophy and multiple bilateral renal cysts some of which are complex for which ultrasound evaluation may be considered. Also she has mild mural thickening seen on the majority of left colon most compatible with spasm and underdistention. Mild colitis is considered less likely. The patient does also have a 3 cm area of soft tissue prominence within the rectum for which clinical followup is recommended. The patient also has hepatomegaly, liver is 21.2 cm in length. ASSESSMENT AND PLAN: 66-year-old female with past medical history of coronary artery disease, status post stent, peripheral vascular disease, end-stage renal disease, on hemodialysis Wednesday, Wednesday and Wednesday, type 2 diabetes, hypertension, hyperlipidemia, hemorrhoids, chronic anemia, iron deficiency presented with: 1. Left upper back pain and nausea. Also fever, temperature 101. Likely secondary to gastroenteritis. The patient did have a CT of abdomen and pelvis. Shows mild mural thickening majority of left column most compatible with spasm, underdistention, also per radiologist, mild colitis is considered less likely. At this point, will start the patient on clear liquid diet and put patient on aspiration precautions and continue to monitor patient. Due to patient's dialysis, will not give patient fluid at this moment and will continue to monitor the resolution of her temperature and making sure she is able to tolerate her diet and advance diet as tolerated. 2. Possible UTI. Urinalysis does show trace leukocyte esterase, 1+ bacteria, 3+ glucose and 3+ protein. The patient was started on Rocephin in the emergency room, will continue and will continue to follow patient's WBC and CRP. 3. End-stage renal disease, on hemodialysis. Dr. Hogan from nephrology has been consulted. Will follow his recommendation. The patient's last dialysis was on Wednesday. The patient was going to have a dialysis today, however, she missed it. The patient will have dialysis per nephrology recommendation. 4. A 3 cm soft tissue on the CT of abdomen and pelvis. Rectal exam was performed. The patient does have a small soft tissue at 6-o'clock inside the rectum. The patient does have a history of hemorrhoids, is possibly hemorrhoid. The patient did have a colonoscopy 10 years ago and due for another one. I have recommended patient to follow up with her GI doctor once patient is back in [place] and she agrees. 5. Lactic acidosis with lactic acid of 2.1, likely secondary to dehydration from not eating and drinking well for the past few days. Will continue to monitor patient. 6. Chronic anemia. Iron deficiency. Will hold patient's iron supplement for now due to the her GI system. Will continue once patient improves. 7. Hyperkalemia with potassium of 5.7. Will correct it with hemodialysis per nephrology recommendation. 8. A small bilateral pleural effusion shown on CT. The patient denies any trouble breathing, however, as a precaution will place patient on oxygen and titrate it above 92%. The patient's oxygen saturation reading jumps anywhere between 78% to 99%. It is possibly due to the patient has peripheral arterial disease, however as precaution overnight will place patient on oxygen and continuous monitor. 9. Hypertension urgency with blood pressure of 228/87. Likely secondary to take her by mouth medication at home. Will continue by mouth medication and will supplement with IV medication as needed and continue to monitor patient. 10. Hyperlipidemia. Continue home statin. 11. Non-insulin dependent type 2 diabetes. Continue insulin sliding scale. Will hold by mouth medication for now and will continue to monitor patient with finger sticks. 12. Coronary artery disease, status post stent. Continue home medication with aspirin and statin, and beta guille. 13. Peripheral arterial disease. Currently stable. Continue to monitor. 14. Deep venous thrombosis (DVT) prophylaxis. On heparin subcutaneously every 8 hours. DISPOSITION: The patient does have a fever and left upper back pain. At this point, this is likely secondary to gastroenteritis, however, will continue to monitor patient and will give IV antibiotics, Rocephin for possible UTI and will continue to monitor her. Will advance patient's diet as tolerated. The patient has been discussed with attending doctor, Dr. Valdez. My preceptor for this patient encounter was Dr. Valdez. The preceptor was physically present in the building during the encounter and was fully available. As needed, all aspects of the patient interview, examination, medical decision making process, and medical care plan development were reviewed and approved by the preceptor. The preceptor is aware and concurs with the plan as stated in the body of this note and will attest to such by his/her cosignature. edited: 06/25/2016 1200 tkf Attending Note: I have independently examined this patient and all aspects of the exam and treatment decisions have been discussed with the resident. A member of the hospitalist staff will continue to follow this patient through discharge. ANJEL
[2016-06-24] MEDS: TEMAZEPAM 15 MG CAP PO SCH (21:00)
[2016-06-24] MEDS: MORPHINE 2 MG/ML 1ML SYRINGE IV PRN ×2 (21:13→23:41)
[2016-06-24] MEDS: LABETALOL 200 MG TAB PO SCH (21:13)
[2016-06-24] MEDS: HEPARIN SOD (PORCINE) 5000 UNITS/ML VIAL SC SCH (21:14)
[2016-06-24] MEDS ORDERED: ANALGESIC BALM CRM 120 GM TOP PRN (23:30)
[2016-06-24 23:59] VITALS: BP 176/79
[2016-06-25] MEDS: ONDANSETRON 4MG/2ML VIAL (J2405) IV PRN (02:33)
[2016-06-25] MEDS: MORPHINE 2 MG/ML 1ML SYRINGE IV PRN ×3 (03:10→18:48)
[2016-06-25 04:00] VITALS: BP 175/78
[2016-06-25] MEDS ORDERED: hydroCHLOROthiazide 25 MG TAB PO ONE (04:45)
[2016-06-25 05:45] VITALS: BP 150/78
[2016-06-25] MEDS: HEPARIN SOD (PORCINE) 5000 UNITS/ML VIAL SC SCH ×3 (05:45→21:42)
[2016-06-25 06:08] LABS: BASO % 0.5 % (0.0-1.0); EOS % 0.4 % (0.0-3.0); LARGE UNSTAINED CELL # 0.1 K/mm3 (0.0-0.4); LARGE UNSTAINED CELL % 1.2 % (0.0-4.0); LYMPH # 0.3 K/mm3 (1.5-4.5); LYMPH % 4.8 % (24.0-44.0); MEAN CORPUSCULAR HEMOGLOBIN 31.8 pg (27.0-33.0); MEAN CORPUSCULAR HGB CONC 31.6 g/dl (32.0-36.5); MEAN CORPUSCULAR VOLUME 100.6 fl (80.0-96.0); MONO # 0.4 K/mm3 (0.0-0.8); MONO % 6.7 % (0.0-5.0); NEUTROPHILS # 5.2 K/mm3 (1.8-7.7); NEUTROPHILS % 86.5 % (36.0-66.0); PLATELET COUNT, AUTOMATED 185 k/mm3 (150-450); RED CELL DISTRIBUTION WIDTH 14.9 % (11.5-14.5)
[2016-06-25 06:23] LABS: CREATININE FOR GFR 10.6 MG/DL (0.55-1.02); GLOMERULAR FILTRATION RATE 3.9 (>45); MAGNESIUM LEVEL 2.3 MG/DL (1.8-2.4)
[2016-06-25 06:32] LABS: POTASSIUM SERUM 6.6 MEQ/L (3.5-5.1)
[2016-06-25] MEDS ORDERED: SOD POLYSTYRENE SULFONATE SUSP 15 GM/60 ML UD PO ONE ×2 (06:45→07:30)
[2016-06-25] MEDS: CINACALCET 30 MG TAB (SENSIPAR) PO SCH (07:24)
[2016-06-25] MEDS: LABETALOL 200 MG TAB PO SCH ×2 (07:24→21:42)
[2016-06-25] MEDS: amLODIPine 5 MG TAB PO SCH (07:25)
[2016-06-25] MEDS: PANTOPRAZOLE 40MG TAB (PROTONIX) PO SCH (07:25)
[2016-06-25] MEDS: LOSARTAN 50 MG TAB PO SCH (07:25)
[2016-06-25] MEDS: SIMVASTATIN 40 MG TAB PO SCH (07:25)
[2016-06-25] MEDS: hydroCHLOROthiazide 25 MG TAB PO SCH (07:26)
[2016-06-25] MEDS ORDERED: CALCIUM GLUCONATE 1,000 MG in D5W MINI-BAG PLUS 100 ML IV ONE (07:30)
[2016-06-25] MEDS: HumaLOG INSULIN (NovoLOG) PER UNIT SC SCH ×5 (07:30→21:00)
[2016-06-25 08:00] VITALS: BP 172/77
--- NOTE | 2016-06-25 11:27 | PHACANCOPD ---
PHARMACY VANCOMYCIN DOSING Pt Demographics Demographics Patient Age:66 , Weight:84.400 , Gender: female Adjusted Body Weight Date: 06/25/16, Adjusted Body Weight: Kg Events Past 24 Hours Events Past 24 Hours: YES: Dialysis (MWF) Vancomycin Vancomycin indication: Gram Positive Bactermia Vancomycin Target Ranges: 15-20 mcg/ml Vancomycin Load Y/N: Yes Load Dose Date Time Vancomycin Load Dose: 1 GRAM Date: 06/25/16 Time:1200 Vancomycin Dose Date: 06/25/16. Current Vancomycin Dose: [1G AFTER HD] Intermittent Dosing?: Yes Labs Labs Item Value Date Time White Blood Count 11.3 K/mm3 H 06/24/16 1009 White Blood Count 6.0 K/mm3 06/25/16 0535 Creatinine 9.13 MG/DL H 06/24/16 1009 Creatinine 10.60 MG/DL H 06/25/16 0535 Micro Microbiology 06/24/16 Blood Culture - Preliminary, Resulted 06/24/16 Blood Culture, Received Pending 06/24/16 Influenza Virus Type A Antigen - Final, Complete 06/24/16 Influenza Virus Type B Antigen - Final, Complete 06/24/16 Urine Culture - Final, Complete Creatinine Clearance Date:06/25/16. Creatinine Clearance: [6.813ML/MIN]. Assessment and Plan Maintaining Current Dose?: Yes Reason for dose change: No Dose Change Pharmacist Note Pharmacist Note Date: 06/25/16. Pharmacist note: Patient is a 66 year old female with end stage renal disease on hemodialysis M,W,F. She has not had vancomycin here in the past. Her Temp., WBC., and Neutrophils are all WNL but were elevated yesterday. Blood culture revealed gram positive cocci in cultures. A loading dose of of 1g is schedule for 06/25 to obtain a target range of 15-20mcg/ml. 1g after HD will be administered from there with a random blood value being drawn 06/29/16 at 500 to determine effectiveness of therapy. We will continue to monitor and change therapy as needed. [facility] Jun 25, 2016 11:25
[2016-06-25] MEDS ORDERED: HEPARIN 1,000 UNITS/ML 10ML VIAL (FOR RADIOLOGY& DIALYSIS ONLY) IV ONE (11:30)
[2016-06-25] MEDS ORDERED: VANCOMYCIN HCL 1,000 MG, VIAL MATE ADAPTER 1 EACH in D5W 250 ML IV ONE (12:00)
--- NOTE | 2016-06-25 14:25 | IPN ---
DATE: 06/25/2016 Time patient was seen was this morning at 10:30. Patient has been seen and examined while receiving hemodialysis. Patient stated that she is feeling better. Denies any left sided upper back pain. Denies any vomiting. Admits to some nausea early in the morning. Denies any abdominal pains, any diarrhea or constipation. Denies chest pain, trouble breathing. Denies any other current new complaints. PHYSICAL EXAMINATION: VITAL SIGNS: Temperature 97.3, pulse 85, respirations 20, blood pressure 172/77 , oxygen was saturating at 100% on 2 liters of nasal cannula. GENERAL: Patient is an obese elderly female who is alert, awake, oriented times three, does not appear to be in distress, resting comfortably in bed with head elevated at 30 degrees. HEENT: Normocephalic, atraumatic. Extraocular motors intact. Mucous moist. NECK: Supple. No neck lymphadenopathy. CARDIOVASCULAR: Regular rate and rhythm, S1 and S2, normal sounds. LUNGS: Clear to auscultation bilaterally. No wheezes, rales or rhonchi. ABDOMEN: Positive bowel sounds, soft, nontender, nondistended. No peritoneal signs. No ecchymosis. EXTREMITIES: The patient has an arteriovenous (AV) fistula on the left upper arm, receiving transfusion. Otherwise, no edema, clubbing or cyanosis. SKIN: Warm and dry. NEURO: Cranial nerves II though XII intact. No focal neurological deficits. LABORATORIES: WBC 6, hemoglobin 10.4, hematocrit 32.9 with platelet count of 185. MCV was 100.6. Sodium 131, potassium 6.6, elevated, chloride 95, bicarbonate 22, BUN was 68, creatinine 10.6, GFR 3.9%, glucose 207, calcium 8, magnesium 2.3. CRP is elevated compared to the day before. Today is 12.3, yesterday it was 1.92. Accu-Chek glucose shows 194 to 200. Hepatitis B antigen, antibody are pending. Blood culture times one shows gram positive cocci in clusters after 24 hours. No new imaging. ASSESSMENT AND PLAN: 66-year-old female with past medical history of coronary artery disease status post stent placement, peripheral vascular disease, end-stage renal disease, on hemodialysis Wednesday, Wednesday and Wednesday, type 2 diabetes, hypertension, hyperlipidemia, hemorrhoids, chronic anemia, iron deficiency presented with: 1. Left upper back pain and nausea. Back pain has resolved. Patient continues to have some nausea this morning. However, no longer has a fever last night. Continue to suspect gastroenteritis due to the patient having diarrhea before she came in and also CT shows mild mural thickening; however, no tenderness on palpation today. Will continue to monitor the patient. The patient's blood culture time one, however does show gram positive cocci in clusters. Will continue vancomycin per nephrology recommendation. In addition, we have ordered an MRI of the back to check for possible causes for the patient's middle back pain. 2. Possible urinary tract infection (UTI). Continue vancomycin and Rocephin. 3. End-stage renal disease, on hemodialysis. Dr. Hogan from nephrology has been consulted. Will follow his recommendation. 4. Hyperkalemia with a potassium of 6.6 this morning. Receiving hemodialysis. 5. [address] of abdomen and pelvis at rectum. Rectal exam was performed. It does show a small soft tissue at 6 o'clock. The patient had a colonoscopy 10 years ago and recommend to followup with her GI doctor back in [place]. 6. Lactic acidosis. Continue to monitor. The patient no longer has any pain. 7. Chronic anemia with iron deficiency. Continue supplements. 8. Small bilateral pleural effusion shown on CT. Patient denies any trouble breathing. Will continue to monitor. Continue on supplemental oxygen. 9. Hypertension urgency, improved. Continue to adjust blood pressure medication as needed. 10. Hyperlipidemia. Continue statin. 11. Non-insulin dependent type 2 diabetes. Continue insulin sliding scale, fingerstick and will advance patient's diet from clear liquids to a renal diet and carbohydrate consistent diet. 12. Coronary artery disease, status post stents. Continue statin, beta-guille and aspirin. 13. Peripheral arterial disease. Currently stable. Continue to monitor. 14. Deep venous thrombosis (DVT) prophylaxis. On heparin subcutaneously every 8 hours. DISPOSITION: The patient's fever has resolved. Back pain has resolved as well. However, will further rule out infectious etiologies with MRI of the back. Currently we believe it is possibly secondary to gastroenteritis. A GI panel has been ordered. Will followup. Continue Rocephin and vancomycin. The patient has been discussed with attending doctor, Dr. Howell. My preceptor for this patient encounter was Dr. Leena Howell. The preceptor was physically present in the building during the encounter and was fully available. As needed, all aspects of the patient interview, examination, medical decision making process, and medical care plan development were reviewed and approved by the preceptor. The preceptor is aware and concurs with the plan as stated in the body of this note and will attest to such by his/her cosignature. I have both independently examined this patient as well as reviewed the note. I have discussed in detail with the resident the findings and plan of treatment as documented in the residents note. I will continue to follow the patient and offer further guidance to the patients care as necessary during this hospital stay. Leena HOBBS
[2016-06-25 16:00] VITALS: BP 168/72
[2016-06-25] MEDS ORDERED: cefTRIAXone SOD 1 GM in D5W MINI-BAG PLUS 50 ML IV SCH (16:00)
[2016-06-25] MEDS: SUCROFERRIC OXYHYDROXIDE 500MG CHEW TAB (VELPHORO) PO SCH (18:00)
--- NOTE | 2016-06-25 18:43 | CR ---
DATE OF CONSULTATION: 06/25/2016 REQUESTING PHYSICIAN: Dr. Leena Howell CONSULTING PHYSICIAN: Dr. Hogan REASON FOR CONSULTATION: Management of end-stage renal disease and hyperkalemia. CHIEF COMPLAINT: Patient presented to the emergency room yesterday with back pain and nausea. HISTORY OF PRESENT ILLNESS: Sylvia Aguirre is a 66-year-old female with past medical history of end-stage renal disease, on hemodialysis every Wednesday, Wednesday, Wednesday, coronary artery disease, diabetes mellitus, type 2, hypertension, and multiple other comorbidities. She presented to the emergency room yesterday with left upper back pain for about two days with radiation to the left, about 8/10 in severity, stabbing in nature. Was also associated with nausea. Patient spiked fever in the emergency room yesterday. She was admitted yesterday to the hospital for further management of fever, back pain. Blood cultures sent from the emergency room. One out of two is growing gram-positive cocci. Today morning, labs show patient had a potassium of 6.6. Patient missed her hemodialysis yesterday. Nephrology service was called for further management of end-stage renal disease and hyperkalemia. PAST MEDICAL HISTORY: 1. Patient has history of coronary artery disease status post coronary artery stenting twice in the past. 2. She has history of peripheral vascular disease, status post stent placement. 3. End-stage renal disease, on hemodialysis every Wednesday, Wednesday, Wednesday. 4. Zqe-jbnrljr-hdsnlsljp diabetes mellitus. 5. Hypertension. 6. Hyperlipidemia. 7. Anemia secondary to end-stage renal disease. PAST SURGICAL HISTORY: 1. Status post arteriovenous (AV) graft placement for hemodialysis. 2. Status post left toe amputation. 3. Status post section in the past. 4. Status post stenting of the coronary allergies. ALLERGIES: No known drug allergies. CURRENT INPATIENT MEDICATION: - Patient was given calcium gluconate 1 gram intravenous (IV) today. - She is on Rocephin 1 gram IV every 24 - She was started on vancomycin after gram-positive cocci was found in the blood cultures. - She is on amlodipine 5 mg daily. - Sensipar 6 mg daily - heparin subcutaneous - hydrochlorothiazide 25 mg daily - labetalol 400 mg by mouth twice a day - losartan 100 mg by mouth daily - morphine as needed - Zofran 4 mg IV every 6 as needed - Protonix 40 mg by mouth daily - simvastatin 40 mg by mouth - Kayexalate one dose was given this morning. - She is on Restoril 15 mg by mouth at bedtime. HOME MEDICATIONS: Patient's home medications include: - amlodipine - Sensipar - glipizide 10 mg daily - hydrochlorothiazide - labetalol - losartan - Velphoro 1500 mg with meals - Felicita-Bobby - simvastatin 40 mg - temazepam FAMILY HISTORY: Positive family history of diabetes and renal failure in mother. SOCIAL HISTORY: Patient is visiting at this time. She is living with her daughter. She denies any smoking, drug abuse, recreational drug use, or alcohol abuse. She is visiting from [place] at this time. REVIEW OF SYSTEMS: CONSTITUTIONAL: Patient reported chills, and she had fever spikes yesterday. EYES: She denies any recent blurry vision or change in the vision ENT: She denies any ear discharge, dysphagia, or odynophagia. CARDIOVASCULAR: She denies any chest pain, but she reports back pain. RESPIRATORY: She denies any wheezing, cough, or shortness of breath. GASTROINTESTINAL: Patient reported nausea, but she denies any diarrhea or constipation. GENITOURINARY: Patient denies any dysuria or hematuria. She has end-stage renal disease, and she is on dialysis. MUSCULOSKELETAL: She denies any muscle aches or pains. ENDOCRINE: She has diabetes, and she has secondary hyperparathyroidism. HEMATOLOGIC/ONCOLOGIC: She has history of anemia secondary to end-stage renal disease. PSYCHIATRIC: She denies any history of anxiety or depression. CENTRAL NERVOUS SYSTEM: She denies any history of strokes or transient ischemic attacks (TIAs). SKIN: She denies any rashes or ulcers. All other review of systems was found to be negative. PHYSICAL EXAMINATION: GENERAL: Patient is awake, alert, oriented times three, lying in bed, getting hemodialysis done. No apparent distress at this time. VITAL SIGNS: Temperature is 97.3 degrees Fahrenheit, blood pressure is 172/77, pulse is 85, respiratory rate of 18, saturating 100% on room air. Intake and output: There is no urine output recorded. Weight in the bed scale today morning was 84.4 kg. HEAD AND NECK: Extraocular muscles intact. Pupils equally round and reactive to light. Neck is supple. There is no jugular venous distention (JVD). CARDIOVASCULAR: S1, S2, regular rate. No murmur, rub, or gallop. RESPIRATORY: Chest is clear to auscultation bilaterally. Bilateral equal air entry. No rales or rhonchi. ABDOMEN: Soft. Positive bowel sounds. Nontender. No ascites. No organomegaly. EXTREMITIES: No clubbing or cyanosis. Pulses are 2+. CENTRAL NERVOUS SYSTEM: No focal neurological deficit. Power is 5/5 in all extremities. SKIN: No rashes or ulcers. PSYCHIATRIC: Normal mood and affect. LYMPH NODES: There is no significant cervical, axillary, or inguinal adenopathy. LABORATORY REVIEW: CBC showed a WBC of 6, hemoglobin is 10.4, platelets are 185. Her white cell count was 11.3, which got better today. Urinalysis showed 3+ protein. Negative nitrite. Trace leukocyte esterase. BMP done today morning showed sodium 131, potassium 6.6, chloride 95, bicarbonate 22, BUN 68, creatinine 10.6. Lactic acid was 2.1. Calcium is 8. C-reactive protein is 12.3. Microbiology: Preliminary blood cultures, one out of two bottles, is growing gram-positive cocci in clusters. IMAGING: CT scan of abdomen and pelvis done today showed small pleural effusions. Bilateral renal cortical atrophy. Hepatomegaly. Liver span was 21.2 cm in length. A chest x-ray posterior-anterior (PA) and lateral was ordered. Official report is pending at this time. ASSESSMENT: A 66-year-old female with past medical history of coronary artery disease, status post stents in the past, peripheral vascular disease, end-stage renal disease, on hemodialysis every Wednesday, Wednesday, Wednesday, diabetes mellitus, type 2, hypertension, this admission with back pain, fever, and bacteremia. Nephrology service following the patient for management of end-stage renal disease. PLAN: 1. End-stage renal disease. Patient missed her hemodialysis yesterday. She is getting hemodialysis at this time. We shall try to do an ultrafiltration of about 3 liter was as tolerated by her blood pressure today. 2. Hyperkalemia. Patient was already given Kayexalate and calcium gluconate this morning. She is currently being dialyzed with 1 K dialysate. Hyperkalemia will improve after hemodialysis. 3. Gram-positive cocci bacteremia in one out of two cultures. I have ordered vancomycin with hemodialysis. Continue current dose of Rocephin as well. 4. Chest pain and back pain. Patient has slightly elevated lactate level. She has history of coronary artery disease. I do not see any troponins being done. I would do the troponins of this patient. I have ordered the chest x-ray as well, and I am going to do an echocardiogram as well. 5. Chronic kidney disease, mineral bone disease. Continue current dose of Sensipar 60 mg by mouth daily for secondary hyperparathyroidism, and I have restarted her home dose of Velphoro 1500 mg by mouth three times a day with meals. 6. Anemia and end-stage renal disease. Patient's hemoglobin is 10.4 at this time. No need of Aranesp. If her hemoglobin drops, I will give her a dose of Aranesp with next hemodialysis session. 7. Diabetes mellitus, type 2. Management is as per primary team. 8. Hypertension. Blood pressure is slightly above goal at this time. Continue current dose of amlodipine 5 mg by mouth daily, hydrochlorothiazide 25 mg, labetalol 400 mg by mouth twice a day, and losartan 100 mg by mouth daily. If patient remains hypertensive, amlodipine can be increased to 10 mg daily. Thank you for involving us in the care of this patient. We shall be happy to follow the patient along with you tomorrow morning.
[2016-06-25] MEDS ORDERED: SLF 3 ML SYR IV PRN (19:15)
[2016-06-25 20:00] VITALS: BP 152/83
[2016-06-25] MEDS: SLF 3 ML SYR IV SCH (21:42)
[2016-06-25] MEDS: TEMAZEPAM 15 MG CAP PO SCH (21:42)
--- NOTE | 2016-06-25 23:21 | REP ---
Clinical: Chest pain and shortness of breath. Comparison: None. Findings: Njmtlizv-cx-mabmp right pleural effusion with suspected pulmonary venous congestion and basilar atelectasis. Mild cardiomegaly cannot be excluded. No pneumothorax. Skeletal structures intact. Impression: Zagvsaoc-sj-dhqbn right pleural effusion and findings to suggest pulmonary venous congestion. Signed by Ramón Henao MD 06/25/2016 11:13 P
[2016-06-25 23:59] VITALS: BP 159/66
[2016-06-26] VITALS (7 sets, daily range): BP systolic 139–152; BP diastolic 58–73
[2016-06-26] MEDS: MORPHINE 2 MG/ML 1ML SYRINGE IV PRN ×2 (01:19→04:32)
[2016-06-26 05:31] LABS: BASO % 0.5 % (0.0-1.0); EOS # 0.1 K/mm3 (0.0-0.50); EOS % 1.4 % (0.0-3.0); LARGE UNSTAINED CELL # 0.2 K/mm3 (0.0-0.4); LARGE UNSTAINED CELL % 2.5 % (0.0-4.0); LYMPH # 0.6 K/mm3 (1.5-4.5); LYMPH % 8.8 % (24.0-44.0); MEAN CORPUSCULAR HEMOGLOBIN 31.7 pg (27.0-33.0); MEAN CORPUSCULAR HGB CONC 31.9 g/dl (32.0-36.5); MEAN CORPUSCULAR VOLUME 99.3 fl (80.0-96.0); MONO # 0.6 K/mm3 (0.0-0.8); MONO % 8.9 % (0.0-5.0); NEUTROPHILS # 5.3 K/mm3 (1.8-7.7); NEUTROPHILS % 78.1 % (36.0-66.0); PLATELET COUNT, AUTOMATED 177 k/mm3 (150-450); RED CELL DISTRIBUTION WIDTH 14.9 % (11.5-14.5); WHITE BLOOD COUNT 6.8 K/mm3 (4.0-10.0)
[2016-06-26] MEDS: SLF 3 ML SYR IV SCH ×3 (05:43→21:36)
[2016-06-26] MEDS: HEPARIN SOD (PORCINE) 5000 UNITS/ML VIAL SC SCH ×3 (05:43→21:36)
[2016-06-26] MEDS: ACETAMINOPHEN TAB 650MG DOSE (2X325MG) PO PRN ×3 (05:45→23:36)
[2016-06-26 05:52] LABS: CALCIUM LEVEL 7.9 MG/DL (8.8-10.2); CREATININE FOR GFR 6.98 MG/DL (0.55-1.02); GLOMERULAR FILTRATION RATE 6.3 (>45); MAGNESIUM LEVEL 2.2 MG/DL (1.8-2.4); POTASSIUM SERUM 3.8 MEQ/L (3.5-5.1)
[2016-06-26] MEDS: HumaLOG INSULIN (NovoLOG) PER UNIT SC SCH ×4 (07:30→21:37)
[2016-06-26] MEDS: SUCROFERRIC OXYHYDROXIDE 500MG CHEW TAB (VELPHORO) PO SCH ×3 (07:55→18:00)
[2016-06-26] MEDS ORDERED: INFLUENZA QUADRIVALENT PF VACCINE 0.5ML SYRINGE/VIAL (90686) IM ONE (09:00)
[2016-06-26] MEDS: CINACALCET 30 MG TAB (SENSIPAR) PO SCH (09:22)
[2016-06-26] MEDS: PANTOPRAZOLE 40MG TAB (PROTONIX) PO SCH (09:23)
[2016-06-26] MEDS: LABETALOL 200 MG TAB PO SCH ×2 (09:23→21:37)
[2016-06-26] MEDS: LOSARTAN 50 MG TAB PO SCH (09:23)
[2016-06-26] MEDS: hydroCHLOROthiazide 25 MG TAB PO SCH (09:23)
[2016-06-26] MEDS: amLODIPine 5 MG TAB PO SCH (09:24)
[2016-06-26] MEDS: SIMVASTATIN 40 MG TAB PO SCH (09:24)
--- NOTE | 2016-06-26 09:42 | REP ---
MRI THORACIC SPINE WITHOUT CONTRAST: HISTORY: Back pain. There is no disc bulge or herniation. The spinal canal and neural foramina are patent. The spinal cord is normal in signal intensity. There is no intradural extramedullary lesion. Increased signal intensity on T2-weighted images is present in the end plates of several mid and lower thoracic vertebral bodies. This represents degenerative change. IMPRESSION: There is no disc bulge or herniation. Signed by Carlos Robert MD 06/26/2016 09:44 A
--- NOTE | 2016-06-26 09:46 | REP ---
MRI LUMBAR SPINE WITHOUT CONTRAST: HISTORY: Back pain. There is no disc bulge or herniation at the L1-2 through L3-4 levels. There is hypertrophy of the posterior articulating facets. The nerves exit the neural foramina without compression. A subchondral cyst is present in the right L3 inferior facet. A diffuse disc bulge is present at the L4-5 level. There is hypertrophy of the ligamenta flava and posterior articulating facets. These findings produce minimal central canal stenosis. The L4 nerves exit the neural foramina without compression. A diffuse disc bulge is present at the L5-S1 level. This abuts the thecal sac and S1 nerves as they exit the thecal sac. There is hypertrophy of the posterior articulating facets. The L5 nerves exit the neural foramina without compression. The conus medullaris is normal in appearance terminating at the level of the T12-L1 intervertebral disc. Increased signal intensity on T2-weighted images is present in the end plates of the L2-5 vertebral bodies. This represents degenerative change. IMPRESSION: 1. Minimal central canal stenosis at the L4-5 level secondary to disc bulge, ligamentous and facet hypertrophy. 2. Diffuse disc bulge at the L5-S1 level. This abuts the thecal sac and S1 nerves as they exit the thecal sac. Signed by Carlos Robert MD 06/26/2016 09:54 A
[2016-06-26 09:51] LABS: HEPATITIS B SURFACE ANTIBODY POSITIVE (POSITIVE)
[2016-06-26 09:54] LABS: HEPATITIS B SURFACE ANTIBODY POSITIVE (POSITIVE)
[2016-06-26] MEDS ORDERED: VANCOMYCIN HCL 1,000 MG, VIAL MATE ADAPTER 1 EACH in D5W 250 ML IV SCH (11:00)
[2016-06-26 12:47] LABS: INR 1.37
[2016-06-26] MEDS: CHECK TO SEE IF PATIENT IS RECEIVING DIALYSIS TODAY AND REFER TO THE VANCOMYCIN ORDER XX SCH (16:00)
[2016-06-26 16:07] LABS: RBC PLEURAL FLUID 13 (<10mm3 cells/uL); TNC PLEURAL FLUID 535 cells/uL (0-20)
[2016-06-26 16:08] LABS: BF DIFF IF INDICATED? YES (NO)
[2016-06-26 16:22] LABS: LDH, BODY FLUID 85 U/L (NOT ESTABLISHED); TOTAL PROTEIN, BODY FLUID 3.4 G/DL (NOT ESTABLISHED)
--- NOTE | 2016-06-26 16:39 | REP ---
ULTRASOUND GUIDED RIGHT THORACENTESIS: The procedure was performed under the direct supervision of Dr. Owens. The risks and benefits of the procedure were explained to the patient and informed consent was obtained. The right pleural effusion was localized using ultrasound guidance. The skin was prepped and draped in a sterile fashion. 1% lidocaine was used as a local anesthetic. Using ultrasound guidance a #8-[place] [id number] catheter was inserted using trocar technique. 415 mL of red-tinged fluid was withdrawn and sent to the lab. The patient tolerated the procedure well and there were no immediate complications. Reviewed by FORTUNATO Lucas 06/26/2016 04:54 PEdited and Signed by Dar Owens MD 06/26/2016 05:25 P
--- NOTE | 2016-06-26 16:40 | REP ---
TWO VIEW CHEST: Two views of the chest are performed status post right thoracentesis. The mount of right pleural fluid has diminished. There is no pneumothorax. Left basilar infiltrate persists. Cardiomediastinal silhouette is unchanged. IMPRESSION: No pneumothorax, status post right thoracentesis. Decreased amount of right pleural fluid. Persistent small left effusion and basilar infiltrate/atelectasis. Signed by Dar Owens MD 06/26/2016 05:28 P
[2016-06-26 17:04] LABS: CC BF DIFF EXAM CYTOCENTRIFUGE
--- NOTE | 2016-06-26 17:51 | EDDOCDS ---
Physician Documentation [facility] Name: Sylvia Aguirre Age: 66 yrs Sex: Female : 1950 Arrival Date: 06/24/2016 Time: 09:06 Bed 10 Private MD: Unknown, Family Dr Disposition: 06/24/16 15:18 Hospitalization ordered by Omid Valdez for Inpatient Admission. Preliminary diagnosis are Vomiting, Fever, unspecified. - Bed requested for PCU. - Status is Inpatient Admission. ck1 - Condition is Stable. - Problem is new. - Symptoms have improved. Historical: - Allergies: no known allergies; - Home Meds: 1. Felicita-Bobby 0.8 mg oral tab daily 2. glipizide 10 mg Oral tab 1 tab once daily 3. labetalol 200 mg Oral tab 2 tabs 2 times per day 4. Sensipar 60 mg oral tab 1 tab once daily 5. simvastatin 40 mg Oral tab 1 tab once daily 6. hydrochlorothiazide 25 mg Oral tab 1 tab once daily 7. losartan 100 mg oral tab 1 tab once daily 8. amlodipine 5 mg Oral tab 1 tab once daily - PMHx: Hypertension; High Cholesterol; Renal Failure with Dialysis; Diabetes - NIDDM: controlled; - PSHx: Stents, Coronary; Dialysis Graft Construction, Arm; ; left toe amputation; - Social history: Smoking status: Patient states was never smoker of tobacco. No barriers to communication noted, The patient speaks fluent [place], Speaks appropriately for age. - Family history: Not pertinent. - : The pt / caregiver states he / she is not on anticoagulants. Home medication list is obtained from the patient. - Exposure Risk Screening:: None identified. Vital Signs: 06/24 09:08 BP 228 / 87; Pulse 99; Resp 18 S; Temp 99.6(O); Pulse Ox 93% on R/A; Weight 79.38 kg / dd6 175 lbs (R); Height 5 ft. 8 in. (172.72 cm) (R); 09:25 BP 184 / 80 RA (man/); mlb1 11:19 BP 201 / 86; Pulse 92; Resp 16; Temp 100.0(O); Pulse Ox 91% on 2 lpm NC; Pain 7/10; ck1 13:07 Pulse 96 MON; Pulse Ox 93% ; ck1 13:21 BP 155 / 83 (auto/); ck1 13:21 Resp 16; Temp 101.3; ck1 14:47 BP 196 / 82 (auto/); ck1 14:47 Pulse 92 MON; Pulse Ox 90% ; ck1 15:02 BP 192 / 80 (auto/); ck1 15:02 Pulse 92 MON; Pulse Ox 92% ; ck1 15:16 Pulse 90 MON; Pulse Ox 94% ; ck1 15:17 BP 178 / 77 (auto/); ck1 15:32 BP 177 / 58 (auto/); ck1 15:32 Pulse 92 MON; Pulse Ox 100% ; ck1 15:42 BP 175 / 73 (auto/); ck1 15:42 Pulse 92 MON; Pulse Ox 95% ; ck1 15:45 Temp 99.8(O); ck1 15:46 Resp 18; Temp 99.8(O); Pulse Ox 97% 2 lpm ; ck1 15:46 Pulse 90 MON; Pulse Ox 96% ; ck1 15:47 BP 195 / 80 (auto/); ck1 16:01 Pulse 86 MON; Pulse Ox 100% ; ck1 16:02 BP 172 / 77 (auto/); ck1 16:17 BP 162 / 72 (auto/); ck1 16:18 Pulse 88 MON; Pulse Ox 94% ; ck1 16:32 Pulse 86 MON; Pulse Ox 100% ; ck1 16:46 BP 159 / 73; Pulse 86; Resp 18; Temp 99.3(O); Pulse Ox 98% on 1 lpm NC; Pain 0/10; ck1 09:08 Body Mass Index 26.61 (79.38 kg, 172.72 cm) dd6 MDM: 09:55 Undress patient appropriately for examination ordered. sd1 09:56 Amylase Ordered. EDMS 09:56 Basic Metabolic Profile Ordered. EDMS 09:56 CBC with Diff Ordered. EDMS 09:56 Lipase Ordered. EDMS 09:56 Liver Profile Ordered. EDMS 09:56 NOTHING BY MOUTH+DIET ordered. EDMS 09:56 ECG WITH READING ER PHYS+CARDIAG ordered. EDMS 10:14 morphine 4 mg IVP every 15 minutes; Document pain score/vitals after each dose (Hold if sd1 SBP < 90mmHg) x2 ordered. 10:14 Ondansetron 4 mg IVP once ordered. sd1 10:14 CT ABD & PELVIS: No Contrast Ordered. EDMS 10:27 CBC with Diff Reviewed. sd1 10:48 Financial registration complete. pm4 10:54 Basic Metabolic Profile Reviewed. sd1 10:54 Liver Profile Reviewed. sd1 10:54 Amylase Reviewed. sd1 10:54 Lipase Reviewed. sd1 11:39 [facility] Payment Agreement was scanned into Gl[employer] and attached to record. pm4 13:08 CT ABD & PELVIS: No Contrast Reviewed. sd1 13:24 Acetaminophen Tablet 650 mg PO once ordered. sd1 13:31 -Blood Culture (Adults Only), peripheral from different site, or from device/port/PICC sd1 etc. if present ordered. 13:31 Ondansetron 4 mg IVP once ordered. sd1 13:32 Lactic Acid (Owens tube on ice) Ordered. EDMS 13:32 -Blood Culture Ordered. EDMS 13:32 UA Ordered. EDMS 13:32 Urine Culture Ordered. EDMS 13:58 -Blood Culture (Adults Only), peripheral from different site, or from device/port/PICC jlf etc. if present complete. 14:00 BLOOD CULTURES Ordered. EDMS 15:03 Lactic Acid (Owens tube on ice) Reviewed. sd1 15:03 UA Reviewed. sd1 15:17 cefTRIAXone 1 grams IVPB once over 30 mins; dilute in 50mL of NS or D5W ordered. sd1 15:35 Admission / Observation Status ordered. EDMS 01/ 11:34 T-Sheet-- Draft Copy was scanned into Glocal and attached to record. gb Administered Medications: 06/24 10:25 Drug: morphine 4 mg [morphine 4 mg/mL intravenous cartridge (1 mL)] Route: IVP; Site: ck1 right antecubital; 11:19 Follow up: BP 201 / 86; Pulse 92 bpm; Resp 16 bpm; Temp 100.0 Oral; Pulse Ox 91% 2 lpm ck1 Nasal Cannula; Pain 10 Adult; Response: Confirmed pt not driving.; No Adverse Reaction; Pain is decreased 10:25 Drug: Ondansetron 4 mg [ondansetron HCl 2 mg/mL intravenous solution (2 mL)] Route: ck1 IVP; Site: right antecubital; 13:36 Drug: Ondansetron 4 mg [ondansetron HCl 2 mg/mL intravenous solution (2 mL)] Route: ck1 IVP; Site: right antecubital; 14:14 Drug: Acetaminophen 650 mg [acetaminophen 325 mg tablet (2 tabs)] Route: PO; hs1 15:45 Follow up: Temp 99.8 Oral; Response: Temperature is decreased ck1 15:32 Drug: cefTRIAXone 1 grams [ceftriaxone 1 gram solution for injection] Route: IVPB; ck1 Infused Over: 30 mins; Site: right antecubital; 16:47 Follow up: IV Status: Completed infusion ck1 Signatures: Dispatcher [employer] EDMS Zita Echeverria MD MD sd1 Cici Arredondo, Poultry Pinner Unit lbd Jovana Marie, Reg Reg gb Ronald Thibodeaux RN RN mlb1 Angelica Fry RN RN ck1 Maurice Guillaume, WOOD CUTTER WOOD CUTTER jlf Nnamdi Jimenez, Reg Reg pm4 Janell Delgado RN hs1 The chart was reviewed and I authenticate all verbal orders and agree with the evaluation and treatment provided.Attachments: 11:39 [facility] Payment Agreement pm4 06/26 11:34 T-Sheet-- Draft Copy gb Chart Complete MTDD
--- NOTE | 2016-06-26 17:51 | EDDOCDS ---
Nurse's Notes [facility] Name: Sylvia Aguirre Age: 66 yrs Sex: Female : 1950 Arrival Date: 06/24/2016 Time: 09:06 Bed 10 Private MD: Angel, Family Dr Diagnosis: Vomiting;Fever, unspecified Presentation: 06/24 09:15 Presenting complaint: Patient states: Low back pain and nausea began this am. Acute mlb1 neurological deficits are not present. Mechanism of Injury: No Mechanism of Injury. Adult Sepsis Screening: The patient does not have new or worsening altered mentation. Patient's respiratory rate is less than 22. Systolic blood pressure is greater than 100. Patient has a qSOFA score of 0- Negative Sepsis Screen. Suicide/Homicide risk assessment- the patient denies having any suicidal and/or homicidal ideations and does not present with any other emotional, behavioral or mental health complaints. Status: Patient is not a billing services manager or dependent. Transition of care: patient was not received from another setting of care. 09:15 Acuity: SG Level 3 mlb1 09:15 Method Of Arrival: Walkin/Carried/Asstd mlb1 Triage Assessment: 09:21 General: Appears in no apparent distress, Behavior is appropriate for age, cooperative. mlb1 Pain: Location: low back area Pain currently is 8 out of 10 on a pain scale. Pt Declines HIV testing. GI: Reports nausea, vomiting. Historical: - Allergies: no known allergies; - Home Meds: 1. Felicita-Bobby 0.8 mg oral tab daily 2. glipizide 10 mg Oral tab 1 tab once daily 3. labetalol 200 mg Oral tab 2 tabs 2 times per day 4. Sensipar 60 mg oral tab 1 tab once daily 5. simvastatin 40 mg Oral tab 1 tab once daily 6. hydrochlorothiazide 25 mg Oral tab 1 tab once daily 7. losartan 100 mg oral tab 1 tab once daily 8. amlodipine 5 mg Oral tab 1 tab once daily - PMHx: Hypertension; High Cholesterol; Renal Failure with Dialysis; Diabetes - NIDDM: controlled; - PSHx: Stents, Coronary; Dialysis Graft Construction, Arm; ; left toe amputation; - Social history: Smoking status: Patient states was never smoker of tobacco. No barriers to communication noted, The patient speaks fluent Faroese, Speaks appropriately for age. - Family history: Not pertinent. - : The pt / caregiver states he / she is not on anticoagulants. Home medication list is obtained from the patient. - Exposure Risk Screening:: None identified. Screenin:14 Screening information is obtained from the patient. Fall risk: No risks identified. ck1 Assistance ADL's: requires no assistance with activities of daily living. Abuse/DV Screen: The patient / caregiver reports he/she is: not in a situation that causes fear, pain or injury. Nutritional screening: No deficits noted. Advance Directives: Currently, there is no health care proxy. home support is adequate. Assessment: 10:14 General: Appears in no apparent distress, comfortable, Behavior is appropriate for age, ck1 cooperative. Pain: Location: right flank Pain currently is 8 out of 10 on a pain scale. Neurological: Level of Consciousness is awake, alert, obeys commands, Oriented to person, place, time. Respiratory: Respiratory effort is unlabored, Respiratory pattern is regular, symmetrical. GI: Reports nausea. Derm: Skin is intact, is healthy with good turgor, Skin is pink, warm & dry. Musculoskeletal: Circulation, motion, and sensation intact Range of motion intact in all extremities. 11:20 General: Appears to be sleeping. Behavior is appropriate for age, cooperative, quiet. ck1 Pain: Location: right flank Pain currently is 7 out of 10 on a pain scale. Neurological: Level of Consciousness is awake, alert, obeys commands, Oriented to person, place, time. Respiratory: Respiratory effort is unlabored, Respiratory pattern is regular, symmetrical. GI: Reports nausea, Denies vomiting. Derm: Skin is intact, Skin is pink, warm & dry. 12:20 General: Appears in no apparent distress, comfortable, Behavior is appropriate for age, ck1 cooperative, quiet. Neurological: Level of Consciousness is awake, alert, obeys commands, Oriented to person, place, time. Respiratory: Respiratory effort is unlabored, Respiratory pattern is regular, symmetrical. GI: Reports nausea, Denies vomiting. Derm: Skin is intact, is healthy with good turgor, Skin is pink, warm & dry. Musculoskeletal: Circulation, motion, and sensation intact Range of motion intact in all extremities. 14:16 General: Appears in no apparent distress, Behavior is appropriate for age, cooperative, hs1 Pt resting in stretcher tolerating Tylenol at present. States nausea dissipated. . 14:49 General: Appears in no apparent distress, to be sleeping. Behavior is appropriate for ck1 age, cooperative, quiet. Pain: Location: right flank Pain currently is 5 out of 10 on a pain scale. Neurological: Level of Consciousness is awake, alert, obeys commands, Oriented to person, place, time. Respiratory: Respiratory effort is unlabored, Respiratory pattern is regular, symmetrical. GI: Denies nausea. Derm: Skin is intact, Skin is pink, warm & dry. 15:47 General: Appears in no apparent distress, comfortable, Behavior is appropriate for age, ck1 cooperative. Pain: Location: right flank Pain currently is 5 out of 10 on a pain scale. Neurological: Level of Consciousness is awake, alert, obeys commands, Oriented to person, place, time. Cardiovascular: Rhythm is sinus rhythm Chest pain is denied. Respiratory: Respiratory effort is unlabored, Respiratory pattern is regular, symmetrical. GI: Reports anorexia, nausea. Derm: Skin is intact, Skin is pink, warm & dry. Musculoskeletal: Circulation, motion, and sensation intact Range of motion intact in all extremities. 16:49 General: Appears in no apparent distress, comfortable, Behavior is appropriate for age, ck1 cooperative. Pain: Denies pain. Neurological: Level of Consciousness is awake, alert, obeys commands, Oriented to person, place, time. Cardiovascular: Rhythm is sinus rhythm. Respiratory: Respiratory effort is unlabored, Respiratory pattern is regular, symmetrical. GI: No deficits noted. Derm: Skin is pink, warm & dry. Musculoskeletal: Circulation, motion, and sensation intact Range of motion intact in all extremities. Vital Signs: 09:08 BP 228 / 87; Pulse 99; Resp 18 S; Temp 99.6(O); Pulse Ox 93% on R/A; Weight 79.38 kg dd6 (R); Height 5 ft. 8 in. (172.72 cm) (R); 09:25 BP 184 / 80 RA (man/); mlb1 11:19 BP 201 / 86; Pulse 92; Resp 16; Temp 100.0(O); Pulse Ox 91% on 2 lpm NC; Pain 7/10; ck1 13:07 Pulse 96 MON; Pulse Ox 93% ; ck1 13:21 BP 155 / 83 (auto/); ck1 13:21 Resp 16; Temp 101.3; ck1 14:47 BP 196 / 82 (auto/); ck1 14:47 Pulse 92 MON; Pulse Ox 90% ; ck1 15:02 BP 192 / 80 (auto/); ck1 15:02 Pulse 92 MON; Pulse Ox 92% ; ck1 15:16 Pulse 90 MON; Pulse Ox 94% ; ck1 15:17 BP 178 / 77 (auto/); ck1 15:32 BP 177 / 58 (auto/); ck1 15:32 Pulse 92 MON; Pulse Ox 100% ; ck1 15:42 BP 175 / 73 (auto/); ck1 15:42 Pulse 92 MON; Pulse Ox 95% ; ck1 15:45 Temp 99.8(O); ck1 15:46 Resp 18; Temp 99.8(O); Pulse Ox 97% 2 lpm ; ck1 15:46 Pulse 90 MON; Pulse Ox 96% ; ck1 15:47 BP 195 / 80 (auto/); ck1 16:01 Pulse 86 MON; Pulse Ox 100% ; ck1 16:02 BP 172 / 77 (auto/); ck1 16:17 BP 162 / 72 (auto/); ck1 16:18 Pulse 88 MON; Pulse Ox 94% ; ck1 16:32 Pulse 86 MON; Pulse Ox 100% ; ck1 16:46 BP 159 / 73; Pulse 86; Resp 18; Temp 99.3(O); Pulse Ox 98% on 1 lpm NC; Pain 0/10; ck1 09:08 Body Mass Index 26.61 (79.38 kg, 172.72 cm) dd6 Vitals: 09:08 Log In Time: June 24, 2016 at 09:06. dd6 ED Course: 09:08 Patient visited by Dipesh Elizondo PCA. dd6 09:08 Unknown, Family Dr is Private Physician. dd6 09:08 Patient moved to Waiting dd6 09:09 Patient moved to Pre RCE dd6 09:15 Patient visited by Ronald Thibodeaux, YENNIFER. mlb1 09:16 Triage Initiated mlb1 09:21 Patient visited by Ronald Thibodeaux, YENNIFER. mlb1 09:21 Patient moved to Triage 1 mlb1 09:29 Patient moved to 10 ct3 09:52 Patient visited by Maurice Guillaume PCA. jlf 09:58 EKG done. (by ED staff). Reviewed by Zita Echeverria MD. jlf 10:02 Patient visited by Maurice Guillaume PCA. jlf 10:02 Patient visited by Maurice Guillaume PCA. jlf 10:07 Zita Echeverria MD is Attending Physician. sd1 10:07 Patient visited by Zita Echeverria MD. sd1 10:13 Amylase Sent. ck1 10:13 Basic Metabolic Profile Sent. ck1 10:13 CBC with Diff Sent. ck1 10:13 Lipase Sent. ck1 10:14 The patient / caregiver is instructed regarding the plan of care and ED course. ck1 10:14 Liver Profile Sent. ck1 10:15 Inserted saline lock: 20 gauge in right antecubital area and blood collected. The ck1 patient tolerated the procedure well. 10:24 Patient visited by Angelica Fry RN. ck1 10:40 Patient visited by Angelica Fry RN. ck1 11:18 Angelica Fry RN is Primary Nurse. ck1 11:19 Patient visited by Angelica Fry RN. ck1 11:20 O2 via nasal cannula \T\ 2L/min. ck1 11:36 Patient name changed from Sylvia\S\\S\Aguirre\S\ to Sylvia\S\ \S\Aguirre. EDMS 11:39 [facility] Payment Agreement was scanned into [employer] and attached to record. pm4 11:50 Patient visited by Angelica Fry RN. ck1 12:18 Patient visited by Maurice Guillaume PCA. jlf 12:37 CT ABD & PELVIS: No Contrast Returned. EDMS 12:47 Primary Nurse role handed off by Angelica Fry,YENNIFER mk4 12:52 Angelica Fry RN is Primary Nurse. ck1 12:52 Patient visited by Agnelica Fry RN. ck1 13:08 Jelena Hogan MD is Referral Physician. sd1 13:25 No procedures done that require assistance. ck1 13:31 Patient visited by Angelica Fry RN. ck1 13:57 Urine Culture Sent. jml1 14:15 Patient visited by Angelica Fry RN. ck1 14:37 Patient visited by Angelica Fry RN. ck1 14:43 BLOOD CULTURES Sent. jlf 14:49 Patient visited by Angelica Fry RN. ck1 14:49 O2 via nasal cannula \T\ 4L/min. ck1 15:05 Response to O2 therapy: Other 92% on 4L via NC. ck1 15:14 Patient visited by Angelica Fry RN. ck1 15:18 Omid Valdez DO is Hospitalizing Provider. sd1 15:45 Patient visited by Angelica Fry RN. ck1 06/26 11:34 T-Sheet-- Draft Copy was scanned into [employer] and attached to record. gb Administered Medications: 06/24 10:25 Drug: morphine 4 mg [morphine 4 mg/mL intravenous cartridge (1 mL)] Route: IVP; Site: ck1 right antecubital; 11:19 Follow up: BP 201 / 86; Pulse 92 bpm; Resp 16 bpm; Temp 100.0 Oral; Pulse Ox 91% 2 lpm ck1 Nasal Cannula; Pain 7/10 Adult; Response: Confirmed pt not driving.; No Adverse Reaction; Pain is decreased 10:25 Drug: Ondansetron 4 mg [ondansetron HCl 2 mg/mL intravenous solution (2 mL)] Route: ck1 IVP; Site: right antecubital; 13:36 Drug: Ondansetron 4 mg [ondansetron HCl 2 mg/mL intravenous solution (2 mL)] Route: ck1 IVP; Site: right antecubital; 14:14 Drug: Acetaminophen 650 mg [acetaminophen 325 mg tablet (2 tabs)] Route: PO; hs1 15:45 Follow up: Temp 99.8 Oral; Response: Temperature is decreased ck1 15:32 Drug: cefTRIAXone 1 grams [ceftriaxone 1 gram solution for injection] Route: IVPB; ck1 Infused Over: 30 mins; Site: right antecubital; 16:47 Follow up: IV Status: Completed infusion ck1 Order Results: Lab Order: Amylase; SPEC'M 06/24/16 10:09 Test: AMYLASE; Value: 35; Range: 25-115; Units: U/L; Status: F Lab Order: Basic Metabolic Profile; SPEC'M 06/24/16 10:09 Test: GLUCOSE, FASTING; Value: 203; Range: 80-110; Abnormal: Above high normal; Units: MG/DL; Status: F Test: BLOOD UREA NITROGEN; Value: 56; Range: 7-18; Abnormal: Above high normal; Units: MG/DL; Status: F Test: CREATININE FOR GFR; Value: 9.13; Range: 0.55-1.02; Abnormal: Above high normal; Units: MG/DL; Status: F Test: GLOMERULAR FILTRATION RATE; Value: 4.6; Range: >45; Abnormal: Below low normal; Status: F Test: SODIUM LEVEL; Value: 136; Range: 136-145; Units: MEQ/L; Status: F Test: POTASSIUM SERUM; Value: 5.7; Range: 3.5-5.1; Abnormal: Above high normal; Units: MEQ/L; Status: F Test: CHLORIDE LEVEL; Value: 98; Range: 98-107; Units: MEQ/L; Status: F Test: CARBON DIOXIDE LEVEL; Value: 26; Range: 21-32; Units: MEQ/L; Status: F Test: ANION GAP; Value: 12; Range: 8-16; Units: MEQ/L; Status: F Test: CALCIUM LEVEL; Value: 8.7; Range: 8.8-10.2; Abnormal: Below low normal; Units: MG/DL; Status: F Test Note: ; Units are mL/min/1.73 m2 Chronic Kidney Disease Staging per NKF: Stage I & II GFR >=60 Normal to Mildly Decreased Stage III GFR 30-59 Moderately Decreased Stage IV GFR 15-29 Severely Decreased Stage V GFR <15 Very Little GFR Left ESRD GFR <15 on OPTOMECHANICAL TECHNICIAN Lab Order: CBC with Diff; SPEC'06/24/16 10:09 Test: WHITE BLOOD COUNT; Value: 11.3; Range: 4.0-10.0; Abnormal: Above high normal; Units: K/mm3; Status: F Test: RED BLOOD COUNT; Value: 3.48; Range: 4.00-5.40; Abnormal: Below low normal; Units: M/mm3; Status: F Test: HEMOGLOBIN; Value: 11.3; Range: 12.0-16.0; Abnormal: Below low normal; Units: g/dl; Status: F Test: HEMATOCRIT; Value: 34.8; Range: 36.0-47.0; Abnormal: Below low normal; Units: %; Status: F Test: MEAN CORPUSCULAR VOLUME; Value: 99.8; Range: 80.0-96.0; Abnormal: Above high normal; Units: fl; Status: F Test: MEAN CORPUSCULAR HEMOGLOBIN; Value: 32.3; Range: 27.0-33.0; Units: pg; Status: F Test: MEAN CORPUSCULAR HGB CONC; Value: 32.4; Range: 32.0-36.5; Units: g/dl; Status: F Test: RED CELL DISTRIBUTION WIDTH; Value: 16.1; Range: 11.5-14.5; Abnormal: Above high normal; Units: %; Status: F Test: PLATELET COUNT, AUTOMATED; Value: 203; Range: 150-450; Units: k/mm3; Status: F Test: NEUTROPHILS %; Value: 90.4; Range: 36.0-66.0; Abnormal: Above high normal; Units: %; Status: F Test: LYMPH %; Value: 0.8; Range: 24.0-44.0; Abnormal: Below low normal; Units: %; Status: F Test: MONO %; Value: 4.9; Range: 0.0-5.0; Units: %; Status: F Test: EOS %; Value: 1.1; Range: 0.0-3.0; Units: %; Status: F Test: BASO %; Value: 2.3; Range: 0.0-1.0; Abnormal: Above high normal; Units: %; Status: F Test: LARGE UNSTAINED CELL %; Value: 0.5; Range: 0.0-4.0; Units: %; Status: F Test: NEUTROPHILS #; Value: 10.3; Range: 1.8-7.7; Abnormal: Above high normal; Units: K/mm3; Status: F Test: LYMPH #; Value: 0.1; Range: 1.5-4.5; Abnormal: Below low normal; Units: K/mm3; Status: F Test: MONO #; Value: 0.6; Range: 0.0-0.8; Units: K/mm3; Status: F Test: EOS #; Value: 0.1; Range: 0.0-0.50; Units: K/mm3; Status: F Test: BASO #; Value: 0.3; Range: 0.0-0.2; Abnormal: Above high normal; Units: K/mm3; Status: F Test: LARGE UNSTAINED CELL #; Value: 0.1; Range: 0.0-0.4; Units: K/mm3; Status: F Lab Order: Lipase; 06/24/16 10:09 Test: LIPASE; Value: 119; Range: 73-393; Units: U/L; Status: F Lab Order: Liver Profile; 06/24/16 10:09 Test: AST/SGOT; Value: 12; Range: 15-37; Abnormal: Below low normal; Units: U/L; Status: F Test: ALT/SGPT; Value: 22; Range: 12-78; Units: U/L; Status: F Test: ALKALINE PHOSPHATASE; Value: 177; Range: 45-117; Abnormal: Above high normal; Units: U/L; Status: F Test: BILIRUBIN,TOTAL; Value: 0.6; Range: 0.2-1.0; Units: MG/DL; Status: F Test: BILIRUBIN,DIRECT; Value: 0.2; Range: 0.0-0.2; Units: MG/DL; Status: F Test: TOTAL PROTEIN; Value: 8.1; Range: 6.4-8.2; Units: GM/DL; Status: F Test: ALBUMIN; Value: 3.7; Range: 3.2-5.2; Units: GM/DL; Status: F Test: ALBUMIN/GLOBULIN RATIO; Value: 0.84; Range: 1.00-1.93; Abnormal: Below low normal; Status: F Lab Order: Lactic Acid (Owens tube on ice); 06/24/16 13:49 Test: LACTIC ACID LEVEL, LACTATE; Value: 2.1; Range: 0.4-2.0; Abnormal: Above high normal; Units: MMOL/L; Status: F Lab Order: UA; 06/24/16 13:49 Test: APPEARANCE, URINE; Value: CLEAR; Range: CLEAR; Status: F Test: COLOR, URINE; Value: YELLOW; Range: YELLOW; Status: F Test: PH,URINE; Value: 8.0; Range: 5.0-9.0; Units: UNITS; Status: F Test: SPECIFIC GRAVITY URINE AUTO; Value: 1.007; Range: 1.002-1.035; Status: F Test: PROTEIN, URINE AUTO; Value: 3+; Range: NEGATIVE; Abnormal: Above high normal; Units: mg/dL; Status: F Test: GLUCOSE, URINE (UA) AUTO; Value: 3+; Range: NEGATIVE; Abnormal: Above high normal; Units: mg/dL; Status: F Test: KETONE, URINE AUTO; Value: NEGATIVE; Range: NEGATIVE; Units: mg/dL; Status: F Test: UROBILINOGEN, URINE AUTO; Value: 0.2; Range: 0.0-2.0; Units: mg/dL; Status: F Test: BILIRUBIN, URINE AUTO; Value: NEGATIVE; Range: NEGATIVE; Status: F Test: NITRITE, URINE AUTO; Value: NEGATIVE; Range: NEGATIVE; Status: F Test: LEUKOCYTE ESTERASE, URINE AUTO; Value: TRACE; Range: NEGATIVE; Abnormal: Above high normal; Status: F Test: BLOOD, URINE BLOOD; Value: NEGATIVE; Range: NEGATIVE; Status: F Test: WBC, URINE AUTO; Value: 1; Range: 0-3; Units: /HPF; Status: F Test: RBC, URINE AUTO; Value: 1; Range: 0-3; Units: /HPF; Status: F Test: BACTERIA, URINE AUTO; Value: 1+; Range: NEGATIVE; Abnormal: Above high normal; Status: F Test: SQUAMOUS EPITHELIAL CELL UR AU; Value: 3; Range: 0-6; Units: /HPF; Status: F Test: HYALINE CAST, URINE AUTO; Value: 0; Range: 0-1; Units: /LPF; Status: F Radiology Order: CT ABD & PELVIS: No Contrast Test: CT ABD & PELVIS: No Contrast REASON FOR EXAMINATION: right FP ?stone; CT abdomen pelvis without contrast 06/24/2016; ; Indication right flank pain, possible kidney stone; ; Comparison: None; ; Findings: There are moderate right and small left basilar pleural effusions.; There is bibasilar compressive atelectasis, right greater than left. There is; pulmonary venous hypertension in the included portions of the lungs. Cardiac; silhouette is borderline in size and there are moderate coronary artery; calcifications. There is also calcification versus prosthetic valve within the; aortic root, incompletely included in view.; ; Liver is enlarged 21.4 cm cranial caudal dimension, without fatty infiltration or; focal lesion. Spleen, pancreas gallbladder are unremarkable. There is no; biliary dilatation. Adrenal glands are normal. Diffuse atherosclerotic changes; noted in the aorta, mesenteric ,and renal arteries consistent with history of; chronic renal failure. Kidneys are moderately atrophic bilaterally and there are; multiple bilateral renal cortical cysts. There is no hydronephrosis bilaterally; or obstructing ureteral calculi. No pathologically enlarged retroperitoneal; nodes. Stomach, small bowel are within normal limits. Appendix is not; visualized and may be surgically absent.; ; Bladder is contracted uterus is absent mild mural thickening is seen majority of; the left colon and within the rectum with some sparing of rectosigmoid colon this; is most likely secondary to some/under distension and less likely colitis. Soft; tissue prominence is seen within the rectum/anus of 3 cm diameter. There is no; free air or ascites; ; Impression:; ; Small to moderate right and small left pleural effusions, bibasilar atelectasis,; right greater than left. Pulmonary t venous hypertension; ; Kidneys without hydronephrosis or obstructing ureteral calculi bilaterally.; There is moderate bilateral renal cortical atrophy and multiple bilateral renal; cysts some of which are complex for which ultrasound evaluation may be; considered.; ; Mild mural thickening seen in the majority of left colon is most compatible with; spasm/under distension. Mild colitis considered less likely. 3 cm area of soft; tissue prominence within the rectum for which clinical follow-up is recommended.; ; Hepatomegaly, liver 21.2 cm in length.; ; Case discussed with Dr. Correia in the ED on 06/24/16 at 1140 am.; ; ; Signed by; Yuliya Mccabe MD 06/24/2016 11:46 A; Outcome: 10:40 CT Study completed. ck1 13:09 Discharge ordered by Provider. sd1 15:18 Decision to Hospitalize by Provider. sd1 16:17 Admission hand-off: Report Faxed Fax receipt verified by Diaz Solano RN. ck1 16:48 Discharge Assessment:. The following High Risk Discharge criteria are identified: None. ck1 Admitted to PCU accompanied by nurse, accompanied by tech, via stretcher, with oxygen, on monitor, with chart. Condition: stable. 16:48 Property :Personal belongings accompany Pt. [facility] 16:48 Discharge Assessment: patient administered narcotics - yes. Patient was admitted to the [facility] or transferred to another facility. 16:49 Patient left the ED. [facility] Signatures: Dispatcher [employer] EDMS Zita Echeverria MD MD sd1 Jovana Marie, Reg Reg gb Ronald Thibodeaux RN RN mlb1 Angelica FryRN RN ck1 Dipesh Elizondo, CARDING DOUBLER CARDING DOUBLER dd6 Janell Delgado RN RN hs1 Clementine Vincent, CARDING DOUBLER CARDING DOUBLER ct3 Tray Gage jml1 Jodi Paul RN RN mk4 Maurice Guillaume, CARDING DOUBLER CARDING DOUBLER jlf Nnamdi Jimenez, Reg Reg pm4 Corrections: (The following items were deleted from the chart) 16:48 13:25 Discharge Assessment: Patient awake, alert and oriented x 3. No cognitive and/or ck1 functional deficits noted. Patient verbalized understanding of disposition instructions. patient administered narcotics - yes. Pt provided with safe discharge [facility] 16:48 13:25 Property :Personal belongings accompany Pt. [place] [id number] :48 13:25 Condition: stable [facility] ck 16:48 13:25 The following High Risk Discharge criteria are identified: None. Discharged to [facility] home ambulatory, with family, [facility] :48 13:25 Discharge instructions given to patient, Instructed on discharge instructions, [facility] follow up and referral plans. medication usage, Demonstrated understanding of instructions, medications, Pt was receptive of discharge instructions/ teaching. 16:49 16:48 Discharge Assessment: patient administered narcotics - no [place] [id number] Chart Complete MTDD
--- NOTE | 2016-06-26 17:51 | EDDOCDS ---
Physician Documentation [facility] Name: Sylvia Aguirre Age: 66 yrs Sex: Female : 1950 Arrival Date: 06/24/2016 Time: 09:06 Bed 10 Private MD: Unknown, Family Dr Disposition: 06/24/16 15:18 Hospitalization ordered by Omid Valdez for Inpatient Admission. Preliminary diagnosis are Vomiting, Fever, unspecified. - Bed requested for PCU. - Status is Inpatient Admission. ck1 - Condition is Stable. - Problem is new. - Symptoms have improved. Historical: - Allergies: no known allergies; - Home Meds: 1. Felicita-Bobby 0.8 mg oral tab daily 2. glipizide 10 mg Oral tab 1 tab once daily 3. labetalol 200 mg Oral tab 2 tabs 2 times per day 4. Sensipar 60 mg oral tab 1 tab once daily 5. simvastatin 40 mg Oral tab 1 tab once daily 6. hydrochlorothiazide 25 mg Oral tab 1 tab once daily 7. losartan 100 mg oral tab 1 tab once daily 8. amlodipine 5 mg Oral tab 1 tab once daily - PMHx: Hypertension; High Cholesterol; Renal Failure with Dialysis; Diabetes - NIDDM: controlled; - PSHx: Stents, Coronary; Dialysis Graft Construction, Arm; ; left toe amputation; - Social history: Smoking status: Patient states was never smoker of tobacco. No barriers to communication noted, The patient speaks fluent Argentine, Speaks appropriately for age. - Family history: Not pertinent. - : The pt / caregiver states he / she is not on anticoagulants. Home medication list is obtained from the patient. - Exposure Risk Screening:: None identified. Vital Signs: 06/24 09:08 BP 228 / 87; Pulse 99; Resp 18 S; Temp 99.6(O); Pulse Ox 93% on R/A; Weight 79.38 kg / dd6 175 lbs (R); Height 5 ft. 8 in. (172.72 cm) (R); 09:25 BP 184 / 80 RA (man/); mlb1 11:19 BP 201 / 86; Pulse 92; Resp 16; Temp 100.0(O); Pulse Ox 91% on 2 lpm NC; Pain 7/10; ck1 13:07 Pulse 96 MON; Pulse Ox 93% ; ck1 13:21 BP 155 / 83 (auto/); ck1 13:21 Resp 16; Temp 101.3; ck1 14:47 BP 196 / 82 (auto/); ck1 14:47 Pulse 92 MON; Pulse Ox 90% ; ck1 15:02 BP 192 / 80 (auto/); ck1 15:02 Pulse 92 MON; Pulse Ox 92% ; ck1 15:16 Pulse 90 MON; Pulse Ox 94% ; ck1 15:17 BP 178 / 77 (auto/); ck1 15:32 BP 177 / 58 (auto/); ck1 15:32 Pulse 92 MON; Pulse Ox 100% ; ck1 15:42 BP 175 / 73 (auto/); ck1 15:42 Pulse 92 MON; Pulse Ox 95% ; ck1 15:45 Temp 99.8(O); ck1 15:46 Resp 18; Temp 99.8(O); Pulse Ox 97% 2 lpm ; ck1 15:46 Pulse 90 MON; Pulse Ox 96% ; ck1 15:47 BP 195 / 80 (auto/); ck1 16:01 Pulse 86 MON; Pulse Ox 100% ; ck1 16:02 BP 172 / 77 (auto/); ck1 16:17 BP 162 / 72 (auto/); ck1 16:18 Pulse 88 MON; Pulse Ox 94% ; ck1 16:32 Pulse 86 MON; Pulse Ox 100% ; ck1 16:46 BP 159 / 73; Pulse 86; Resp 18; Temp 99.3(O); Pulse Ox 98% on 1 lpm NC; Pain 0/10; ck1 09:08 Body Mass Index 26.61 (79.38 kg, 172.72 cm) dd6 MDM: 09:55 Undress patient appropriately for examination ordered. sd1 09:56 Amylase Ordered. EDMS 09:56 Basic Metabolic Profile Ordered. EDMS 09:56 CBC with Diff Ordered. EDMS 09:56 Lipase Ordered. EDMS 09:56 Liver Profile Ordered. EDMS 09:56 NOTHING BY MOUTH+DIET ordered. EDMS 09:56 ECG WITH READING ER PHYS+CARDIAG ordered. EDMS 10:14 morphine 4 mg IVP every 15 minutes; Document pain score/vitals after each dose (Hold if sd1 SBP < 90mmHg) x2 ordered. 10:14 Ondansetron 4 mg IVP once ordered. sd1 10:14 CT ABD & PELVIS: No Contrast Ordered. EDMS 10:27 CBC with Diff Reviewed. sd1 10:48 Financial registration complete. pm4 10:54 Basic Metabolic Profile Reviewed. sd1 10:54 Liver Profile Reviewed. sd1 10:54 Amylase Reviewed. sd1 10:54 Lipase Reviewed. sd1 11:39 [facility] Payment Agreement was scanned into ViewRay and attached to record. pm4 13:08 CT ABD & PELVIS: No Contrast Reviewed. sd1 13:24 Acetaminophen Tablet 650 mg PO once ordered. sd1 13:31 -Blood Culture (Adults Only), peripheral from different site, or from device/port/PICC sd1 etc. if present ordered. 13:31 Ondansetron 4 mg IVP once ordered. sd1 13:32 Lactic Acid (Owens tube on ice) Ordered. EDMS 13:32 -Blood Culture Ordered. EDMS 13:32 UA Ordered. EDMS 13:32 Urine Culture Ordered. EDMS 13:58 -Blood Culture (Adults Only), peripheral from different site, or from device/port/PICC jlf etc. if present complete. 14:00 BLOOD CULTURES Ordered. EDMS 15:03 Lactic Acid (Owens tube on ice) Reviewed. sd1 15:03 UA Reviewed. sd1 15:17 cefTRIAXone 1 grams IVPB once over 30 mins; dilute in 50mL of NS or D5W ordered. sd1 15:35 Admission / Observation Status ordered. EDMS 01/ 11:34 T-Sheet-- Draft Copy was scanned into ViewRay and attached to record. gb Administered Medications: 06/24 10:25 Drug: morphine 4 mg [morphine 4 mg/mL intravenous cartridge (1 mL)] Route: IVP; Site: ck1 right antecubital; 11:19 Follow up: BP 201 / 86; Pulse 92 bpm; Resp 16 bpm; Temp 100.0 Oral; Pulse Ox 91% 2 lpm ck1 Nasal Cannula; Pain 10 Adult; Response: Confirmed pt not driving.; No Adverse Reaction; Pain is decreased 10:25 Drug: Ondansetron 4 mg [ondansetron HCl 2 mg/mL intravenous solution (2 mL)] Route: ck1 IVP; Site: right antecubital; 13:36 Drug: Ondansetron 4 mg [ondansetron HCl 2 mg/mL intravenous solution (2 mL)] Route: ck1 IVP; Site: right antecubital; 14:14 Drug: Acetaminophen 650 mg [acetaminophen 325 mg tablet (2 tabs)] Route: PO; hs1 15:45 Follow up: Temp 99.8 Oral; Response: Temperature is decreased ck1 15:32 Drug: cefTRIAXone 1 grams [ceftriaxone 1 gram solution for injection] Route: IVPB; ck1 Infused Over: 30 mins; Site: right antecubital; 16:47 Follow up: IV Status: Completed infusion ck1 Signatures: Dispatcher [employer] EDMS Zita Echeverria MD MD sd1 Cici Arredondo, Hot Oiler Unit lbd Jovana Marie, Reg Reg gb Ronald Thibodeaux RN RN mlb1 Angelica Fry RN RN ck1 Maurice Guillaume, ENDOSCOPY SUPPORT SPECIALIST ENDOSCOPY SUPPORT SPECIALIST jlf Nnamdi Jimenez, Reg Reg pm4 Janell Delgado RN hs1 The chart was reviewed and I authenticate all verbal orders and agree with the evaluation and treatment provided.Attachments: 11:39 [facility] Payment Agreement pm4 06/26 11:34 T-Sheet-- Draft Copy gb Chart Complete MTDD
--- NOTE | 2016-06-26 18:21 | IPN ---
DATE: 06/26/2016 SUBJECTIVE: The patient is seen and examined. Continues to report back pain left-sided, but denies any further nausea or vomiting. Tolerating oral. Denies any chest pain, pressure, discomfort. Denies any shortness of breath. Afebrile overnight. VITAL SIGNS: Temperature 96.8, pulse 72, respirations 18, blood pressure 152/67, pulse oximetry 92% on room air. LABORATORY DATA: WBC 6.8, hemoglobin and hematocrit 9.5 over 29.9, platelets 177. Chemistry: Sodium 136, potassium 3.8, chloride 95, bicarbonate 29, BUN 42, creatinine 6.98. C-reactive protein 16.7. MICROBIOLOGY: Preliminary blood culture one out of two Staphylococcus aureus. PHYSICAL EXAMINATION: GENERAL: Patient obese, alert and oriented times three, in no acute distress. HEENT: Normocephalic, atraumatic. CARDIAC: Regular rate and rhythm. Normal S1, S2. PULMONARY: Bilaterally clear to auscultation. Diminished breath sounds right base. No wheezes, rales, or rhonchi. ABDOMEN: Soft, nontender, nondistended. Positive bowel sounds. EXTREMITIES: No edema bilateral lower extremities. ASSESSMENT AND PLAN: This is a 66-year-old female patient with past medical history of coronary arterial disease with stent placement, peripheral vascular disease with also stent placement, end-stage renal disease on hemoglobin Wednesday, Wednesday, Wednesday, type 2 diabetes, hypertension, dyslipidemia, hemorrhoids, chronic anemia iron deficiency, who presented with left upper back pain and nausea with subjective fever. Possible differential includes gastroenteritis, pneumonia, spinal stenosis. CT scan appreciated, shows mural thickening. No tenderness to palpation. MRI was also appreciated with no acute findings. Blood culture positive for one out of two Staphylococcus aureus. Continue new regimen as ordered. 1. Staphylococcus aureus bacteremia, one out of two. Infectious disease consulted. The patient currently on vancomycin followup infectious disease (ID) recommendations. Repeat cultures sent. Followup C-reactive protein. 2. Right-sided pleural effusion, status post thoracentesis with likely transudate. Will discuss with nephrology the indication of this finding. Continue antibiotics as mentioned. 3. Questionable urinary tract infection (UTI). The patient initially received Rocephin. Urinalysis (UA) was pretty benign. Currently on vancomycin. 4. End-stage renal disease. Hemodialysis as per nephrology, Dr. Hogan. 5. Hyperkalemia. The patient with end-stage renal disease to receive dialysis. 6. A 3-cm soft tissue on CT abdomen and pelvis at the rectum. Colonoscopy 10 years ago. Recommend outpatient followup with gastroenterology. 7. Lactic acidosis. Continue to monitor. Stable vital signs. 8. Anemia of chronic disease with iron deficiency. Continue supplementation. Monitor hemoglobin and hematocrit. 9. Hypertensive urgency. Blood pressure medications ordered. Undergoing hemodialysis. 10. Dyslipidemia. Continue statin. 11. Ayp-rqstorb-wabghywdl diabetes. Insulin as per scale. Followup fingersticks. Adjust as needed. 12. Coronary arterial disease with history of stent. Continue statin, beta guille and aspirin. 13. Peripheral vascular disease with stent. Continue statin and aspirin. 14. Deep venous thrombosis (DVT) prophylaxis. Heparin subcutaneous. DISPOSITION: Pending clinical improvement, ID and nephrology.
--- NOTE | 2016-06-26 18:35 | ECHO ---
DATE OF PROCEDURE: 06/26/2016 REFERRING PHYSICIAN: Dr. Hogan and Dr. Howell. INDICATION: Chest pain. HEIGHT: 173 cm WEIGHT: 84 kg DIMENSIONS: IVS: 1.3 LV: 4.0 LVPW: 1.3 LA: 3.9 Aorta: 2.9 FINDINGS: Study is of good technical quality. Left ventricle is normal size and systolic function with estimated ejection fraction (EF) around 60-65%. Mild left ventricular hypertrophy (LVH) is noted. Right ventricle does not appear grossly dilated. Both atria are probably severely enlarged. Aortic valve is tricuspid. There are heavy calcific abnormalities with restriction of leaflet mobility by 2-D imaging. I estimate not worse than mild or moderate aortic stenosis. There are very prominent degenerative abnormalities of mitral valve with heavy mitral annular calcifications and thickening of mitral leaflets. Leaflet opening is appears to be preserved. Tricuspid and pulmonic valves appear grossly normal. No pericardial effusion is noted. Inferior vena cava is dilated and has only partial collapse with respiration indicative of very high central venous pressure. Aortic root is normal aortic arch and abdominal aorta were not well seen. Doppler interrogation of aortic valve reveals no insufficiency and mild or mildly moderate stenosis. Peak gradient across the valve was 27 and mean gradient 17 mmHg. There is no mitral stenosis but at least moderate if not severe mitral insufficiency with eccentric mitral regurgitation (MR) jet. There is also severe tricuspid insufficiency. Calculated pulmonary artery pressure is in high 60s and 70s corresponding to moderately severe if not severe pulmonary hypertension. Pulmonic valve exhibits trace insufficiency. Mitral inflow pattern and tissue Doppler imaging of mitral annulus reveal grade 2 diastolic dysfunction (tissue Doppler velocities of mitral annulus are 4.9 and 5.1 cm seconds per second respectively. Septal and lateral annulus). CONCLUSIONS: 1. Study is of good technical quality. 2. Normal left ventricle (LV) size with mild LVH and normal LV systolic function. Grade 2 diastolic dysfunction. 3. Degenerative abnormalities of aortic valve resulting in mild to moderate aortic stenosis (mean gradient 17 mmHg). 4. At least moderate mitral insufficiency. 5. There is severe tricuspid insufficiency. 6. Elevated central venous pressure. 7. Moderately severe pulmonary hypertension. COMMENTS: Subacute bacterial endocarditis (SBE) prophylaxis is not recommended. Study is consistent with combination of valvular heart disease and diastolic congestive heart failure. [facility]
[2016-06-26] MEDS: TEMAZEPAM 15 MG CAP PO SCH (21:37)
[2016-06-27] MEDS: MORPHINE 2 MG/ML 1ML SYRINGE IV PRN ×6 (00:47→23:20)
[2016-06-27] MEDS: ONDANSETRON 4MG/2ML VIAL (J2405) IV PRN (00:48)
--- NOTE | 2016-06-27 02:29 | IPN ---
DATE: 06/26/2016 SUBJECTIVE: Patient was seen and examined at the bedside today in the morning. She reports that her pain in the back is significantly better. She got hemodialysis done yesterday. She tolerated the hemodialysis procedure well. She was found to have right-sided pleural effusion on the chest x-ray done yesterday. She just came back after getting the MRI done as well, and MRI showed disc bulging at L5-S1, and there was no stenosis or disc herniation in the thoracic region. REVIEW OF SYSTEMS: Patient denies any fever, chills, rigors, headache, nausea, vomiting, chest pain, or back pain. She denies any shortness of breath. She denies any pain in the abdomen, constipation, or diarrhea. The rest of the review of systems is negative. OBJECTIVE: VITAL SIGNS: Temperature 96.5 degrees Fahrenheit, blood pressure is 152/73, pulse is 78, respiratory rate 18, saturating 96% on room air. Intake and output: Urine output is not recorded. She got hemodialysis done yesterday; three liters of ultrafiltration was done. Weight in the bed scale is 82.5 kg. GENERAL: Patient is awake, alert, and oriented times three, sitting in the bed in no apparent distress. HEAD AND NECK EXAM: Extraocular muscles are intact. Pupils equally round and reactive to light. Neck is supple. There is no jugular venous distention (JVD). CARDIOVASCULAR: S1, S2 regular rate. No murmur, rub, or gallop. RESPIRATORY: There are no rales or rhonchi; however, there are decreased breath sounds and decreased vocal resonance on the right side. ABDOMEN: Soft. Positive bowel sounds. Nontender. No ascites. No organomegaly. EXTREMITIES: No clubbing or cyanosis. Pulses are 2+. CENTRAL NERVOUS SYSTEM: No focal neurological deficit. Power is 5/5 in all extremities. PSYCH: Normal mood and affect. LAB REVIEW: CBC showed WBC of 6.8, hemoglobin 9.5, platelets of 177. BMP showed sodium of 136, potassium 3.8, chloride 95, bicarbonate 29, BUN 42, creatinine 6.9, calcium 7.9, magnesium 2.2. Troponin is 0.1. C-reactive protein is 16.7. MICROBIOLOGY: One out of two blood cultures sent in the emergency room is growing Staphylococcus aureus. Repeat blood cultures are pending. IMAGING: Chest x-ray done yesterday in the afternoon showed moderate to large right pleural effusion an pulmonary venous congestion. Thoracic spine MRI showed no disc bulge or herniation. Lumbar spine MRI showed minimal central canal stenosis at L4-5 level secondary to disc bulge and diffuse disc bulge at L5-S1 level as well. CURRENT MEDICATIONS: Patient's current medications were all reviewed by me. Her Rocephin has been stopped. She continues to be on IV vancomycin. I have stopped her hydrochlorothiazide as well. ASSESSMENT: 66-year-old female with past medical history of coronary artery disease, status post stents in the past, peripheral vascular disease, end-stage renal disease on hemodialysis every Wednesday, Wednesday, and Wednesday, diabetes mellitus type 2, hypertension, this admission with back pain, fever, and bacteremia. Nephrology service following the patient for management of end-stage renal disease. PLAN: 1. End-stage renal disease. Patient's regular days are Wednesday, Wednesday, and Wednesday, which she was just dialyzed yesterday. No urgent need to hemodialysis today. We shall do the hemodialysis tomorrow morning. 2. Hypokalemia. Hypokalemia improved after hemodialysis. 3. Staphylococcus aureus bacteremia. Patient's repeat cultures are pending. Staphylococcus aureus is growing in one out of two bottles. It is possible that it might be a contaminant; however, she has already been started on vancomycin after hemodialysis. Rocephin has been stopped. 4. Back pain. The patient has disc bulge and herniation at L5-S1 area. She is already on pain medications and pain is significantly better. 5. Right-sided pleural effusion. I have ordered repeat thoracentesis under ultrasound guidance by interventional radiology (IR). Patient's pleural fluid will be sent for analysis as well. 6. Anemia and end-stage renal disease. Patient's hemoglobin is below 10. She will be given a dose of Aranesp 200 mcg IV with hemodialysis tomorrow. 7. Hypertension. Patient's blood pressure is acceptable at this time. I am going to stop the hydrochlorothiazide because patient does not make urine, and I do not know the efficacy of hydrochlorothiazide in an oliguric patient in the setting of end-stage renal disease. Plan of care was discussed with the hospitalist team, Dr. Leena Howell.
[2016-06-27 04:23] VITALS: BP 128/66
[2016-06-27 05:42] LABS: BASO % 0.4 % (0.0-1.0); EOS # 0.1 K/mm3 (0.0-0.50); EOS % 1.4 % (0.0-3.0); LARGE UNSTAINED CELL # 0.2 K/mm3 (0.0-0.4); LARGE UNSTAINED CELL % 2.8 % (0.0-4.0); LYMPH # 0.7 K/mm3 (1.5-4.5); LYMPH % 9.7 % (24.0-44.0); MEAN CORPUSCULAR HEMOGLOBIN 32.2 pg (27.0-33.0); MEAN CORPUSCULAR HGB CONC 32.4 g/dl (32.0-36.5); MEAN CORPUSCULAR VOLUME 99.4 fl (80.0-96.0); MONO # 0.7 K/mm3 (0.0-0.8); MONO % 10.1 % (0.0-5.0); NEUTROPHILS # 5.5 K/mm3 (1.8-7.7); NEUTROPHILS % 75.6 % (36.0-66.0); PLATELET COUNT, AUTOMATED 179 k/mm3 (150-450); RED CELL DISTRIBUTION WIDTH 15.1 % (11.5-14.5); WHITE BLOOD COUNT 7.2 K/mm3 (4.0-10.0)
[2016-06-27] MEDS: SLF 3 ML SYR IV SCH ×3 (05:55→21:26)
[2016-06-27] MEDS: HEPARIN SOD (PORCINE) 5000 UNITS/ML VIAL SC SCH ×3 (05:55→21:26)
[2016-06-27] MEDS: PANTOPRAZOLE 40MG TAB (PROTONIX) PO SCH (06:04)
[2016-06-27] MEDS: CINACALCET 30 MG TAB (SENSIPAR) PO SCH (06:04)
[2016-06-27] MEDS: LABETALOL 200 MG TAB PO SCH ×2 (06:04→21:26)
[2016-06-27] MEDS: amLODIPine 5 MG TAB PO SCH (06:05)
[2016-06-27] MEDS: SUCROFERRIC OXYHYDROXIDE 500MG CHEW TAB (VELPHORO) PO SCH ×4 (06:05→18:10)
[2016-06-27] MEDS: LOSARTAN 50 MG TAB PO SCH (06:05)
[2016-06-27] MEDS: SIMVASTATIN 40 MG TAB PO SCH (06:05)
[2016-06-27 06:10] LABS: CALCIUM LEVEL 7.2 MG/DL (8.8-10.2); CREATININE FOR GFR 8.81 MG/DL (0.55-1.02); GLOMERULAR FILTRATION RATE 4.8 (>45); MAGNESIUM LEVEL 2.1 MG/DL (1.8-2.4); POTASSIUM SERUM 3.9 MEQ/L (3.5-5.1)
[2016-06-27 06:20] LABS: ERYTHROCYTE SEDIMENTATION RATE 108 mm/hr (0-30)
--- NOTE | 2016-06-27 07:05 | CR ---
DATE OF CONSULTATION: 06/26/2016 I was asked to consult by Dr. Howell for evaluation of Staphylococcus aureus bacteremia in a patient with end-stage renal disease on hemodialysis. HISTORY OF PRESENT ILLNESS: Mrs. Aguirre is a 66-year-old female from [place] who was here visiting her family who live in [place]. She has a history of end stage renal disease on dialysis since 2011 on Wednesday, Wednesday and Fridays. She had not been feeling well for about a week prior to with some vague abdominal pain, mostly left upper quadrant, and nausea that was not that severe. She had asked to see her invoice coder, but he was not available. She got better. She flew from [place] to [place] on . She was doing fairly well, went to dialysis on 06/22/2016, and did fairly well. On 06/24/2016, the patient was feeling much worse with increasing left upper back pain, nausea and vomiting. She could not tolerate her pills. Therefore, came to the emergency room. The patient had a temperature of 101.3 and O2 sat was 90%. She had slightly elevated white count, she was hyperkalemic and was admitted to the hospital. She had one positive blood culture with Staph aureus, susceptibilities are still pending. The patient does not have a history of previous methicillin-resistant Staphylococcus aureus (MRSA) infection. She is fairly healthy. 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 She has an AV graft in her left upper arm which has not been infected. She feels better compared to admission. Her fever has resolved. Nausea and vomiting has resolved. She has a history of intermittent diarrhea which has not been worse. PAST MEDICAL HISTORY: Significant for coronary artery disease status post stenting, no angina, peripheral vascular disease status post stents in both legs, end-stage renal disease on hemodialysis through a AV fistula left arm, non-insulin dependent diabetes, diabetic since the age of 38, hypertension, hyperlipidemia, anemia of renal disease, history of osteomyelitis of left foot, status post amputation of fourth and fifth toe in 2010. PAST SURGICAL HISTORY: AV graft left arm, status post left fourth and fifth ray amputation, status post section. ALLERGIES: No known drug allergies. MEDICATIONS: - Aranesp 200 mcg IV with hemodialysis - vancomycin 1000 mg IV with hemodialysis - Velphoro 1500 mg with meals - Rocephin 1 gram IV every 24 hours - amlodipine 5 mg by mouth daily - Sensipar 60 mg by mouth daily - Cozaar 100 mg by mouth daily - Zocor 40 mg by mouth daily - Bengay cream as needed - labetalol 400 mg by mouth twice a day - heparin 5000 units subcutaneous every 8 hours - Restoril 15 mg by mouth at bedtime - insulin sliding scale - morphine 1 mg IV every 2 hours as needed pain - Protonix 40 mg daily LABORATORY DATA: White count on admission was 11.3, today was 6.8, hemoglobin 9.5, hematocrit 29.9, platelets 177, 78% neutrophils, 8% lymphocytes, 9% monocytes. Sodium 136, potassium 3.8, chloride 95, bicarb 29, BUN 42, creatinine 6.98, glucose 166, calcium 7.9, magnesium 2.2, LDH 160, troponin 0.12. CRP on admission was 1.92 and today is 16.7. Urinalysis has 1 white cell and 1 red cell. Serology: hepatitis B and hepatitis C negative, hepatitis B surface antibody positive. PT 17 and INR 1.37. Blood culture one out of two sets was positive for Staph aureus, susceptibility is pending. Urine culture is negative. Influenza A and B negative. Repeat blood cultures done on 06/25/2016 are pending, two sets. IMAGING STUDIES: Thoracic and lumbar MRI done without contrast due to renal failure showed no disc bulge or herniation. There are degenerative changes mid and lower thoracic vertebral bodies. Lumbar spine MRI shows central canal stenosis at L4-5 and disc bulge at L5-S1, but again no evidence of infection. Chest x-ray shows moderate to large right-sided pleural effusion suggestive of pulmonary venous congestion. CT of abdomen and pelvis shows small to moderate right and small left pleural effusion, pulmonary venous congestion, kidneys without hydronephrosis or calculi, mild mural thickening seen in the majority of the left colon compatible with spasm, 3 cm area of soft tissue prominence in the rectum which recommends followup, hepatomegaly 21 cm in length. SOCIAL HISTORY: She is and lives in [place]. Born in the [place]. She is . She has two kids. 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 She goes dialysis Wednesday, Wednesday and Wednesday. She does not smoke. FAMILY HISTORY: Nonrevealing. PHYSICAL EXAMINATION: Temperature is 96.5, pulse 78, respirations 18, blood pressure 152/73, O2 sat 96% on room air. Heart: Normal S1, S2 with a faint systolic ejection murmur heard at the left upper sternal border. Lungs: Diminished breath sounds at bases, right more than left. No wheezes or rhonchi. Abdomen is soft, nontender. No hepatosplenomegaly. Back: No costovertebral angle or lumbosacral tenderness. Extremities: No clubbing, cyanosis or edema. She has a diabetic foot ulcer on the right ball of the foot overlying the first metatarsal, dry, with no evidence of infection. The left foot has a ray amputation third and fourth toes with peripheral pulses bilaterally. Warm, dry, calloused feet. Back: No tenderness along the lumbar spine from cervical all the way to the lumbar area to suggest discitis. Normal range of motion of the lumbar spine. Neurologic Exam: Alert and oriented times three with normal neurologic exam. Neck is supple. No jugular venous distention (JVD). No bruits. No neck stiffness. Left arm hemodialysis AV fistula with a good thrill with no evidence of infection, nontender and not erythematous. IMPRESSION: This is a 66-year-old female who has not been feeling well for about 2 weeks now. Initially, started with vague nonspecific left upper abdominal pain and nausea followed by fever the day of admission with worsening nausea and vague nonspecific left upper quadrant versus mid thoracic back pain. So far, imaging of thoracic and lumbar spine did not show evidence of discitis. CT of abdomen and pelvis are nonrevealing, except for a large right pleural effusion, hepatomegaly, and a smaller left pleural effusion. Even though the patient does not seem like she has an empyema, she did not have pulmonary symptoms to suggest a pulmonary infection. I agree with Dr. Hogan that the right sided effusion needs to be tapped to rule out infectious process. PLAN: Discontinue IV Rocephin. Continue IV vancomycin with hemodialysis. The patient has been scheduled for thoracentesis to rule out infectious process of the right lung effusion. Send for aerobic and anaerobic culture, fungal smear culture, acid-fast bacillus smear cluture. Please obtain echocardiogram. Will add sed rate to rule out endocarditis as well. The case has been discussed with Dr. Hogan. Will continue to follow. The patient plans to fly back to [place] on 07/05/2016, which is when her ticket is booked back home.
[2016-06-27] MEDS: HumaLOG INSULIN (NovoLOG) PER UNIT SC SCH ×4 (07:30→21:25)
[2016-06-27 08:00] VITALS: BP 144/68
[2016-06-27] MEDS ORDERED: DARBEPOETIN 100 MCG/0.5 ML *DIALYSIS* SYRINGE (J0882) IV SCH (08:00)
[2016-06-27] MEDS ORDERED: HEPARIN 1,000 UNITS/ML 10ML VIAL (FOR RADIOLOGY& DIALYSIS ONLY) IV ONE (12:00)
[2016-06-27 12:45] VITALS: BP 178/75
[2016-06-27 16:00] VITALS: BP 173/76
[2016-06-27] MEDS: CHECK TO SEE IF PATIENT IS RECEIVING DIALYSIS TODAY AND REFER TO THE VANCOMYCIN ORDER XX SCH (16:51)
[2016-06-27 17:10] VITALS: BP 175/77
--- NOTE | 2016-06-27 17:17 | REP ---
Nonvascular soft tissue ultrasound chest wall left scapular region. History: Mass below the shoulder blade. Findings: Focused scanning of the palpable and visible lump shows an equivocal isoechoic area just deep to the subcutaneous fat measuring 3.8 x 0.8 x 3.8 cm. No cyst is seen. This is nonspecific. It may be a lipoma. Impression: Equivocal solid 3.8 x 3.8 x 0.8 cm lesion deep to the subcutaneous fat in the left scapular region. Nonspecific. No cyst seen. If further characterization is desired, CT or MRI scanning could be performed. Signed by Rajat Puentes MD 06/27/2016 05:35 P
[2016-06-27] MEDS: PERCOCET 5MG/325MG TAB PO PRN ×2 (18:12→22:47)
[2016-06-27] MEDS: TEMAZEPAM 15 MG CAP PO SCH (21:25)
[2016-06-27 22:00] VITALS: BP 167/74
[2016-06-28] MEDS: PERCOCET 5MG/325MG TAB PO PRN ×3 (02:57→12:46)
[2016-06-28] MEDS ORDERED: diphenhydrAMINE INJ 50MG/ML VIAL (J1200) IV ONE (05:30)
[2016-06-28] MEDS: HEPARIN SOD (PORCINE) 5000 UNITS/ML VIAL SC SCH ×2 (05:36→12:47)
[2016-06-28] MEDS: SLF 3 ML SYR IV SCH ×2 (05:37→12:50)
[2016-06-28 06:00] VITALS: BP 151/67
[2016-06-28 06:39] LABS: BASO % 0.4 % (0.0-1.0); EOS # 0.1 K/mm3 (0.0-0.50); EOS % 1.3 % (0.0-3.0); LARGE UNSTAINED CELL # 0.3 K/mm3 (0.0-0.4); LARGE UNSTAINED CELL % 3.3 % (0.0-4.0); LYMPH # 0.8 K/mm3 (1.5-4.5); MEAN CORPUSCULAR HEMOGLOBIN 31.8 pg (27.0-33.0); MEAN CORPUSCULAR HGB CONC 31.5 g/dl (32.0-36.5); MEAN CORPUSCULAR VOLUME 100.9 fl (80.0-96.0); MONO # 0.6 K/mm3 (0.0-0.8); MONO % 7.6 % (0.0-5.0); NEUTROPHILS # 5.8 K/mm3 (1.8-7.7); NEUTROPHILS % 76.4 % (36.0-66.0); PLATELET COUNT, AUTOMATED 235 k/mm3 (150-450); RED CELL DISTRIBUTION WIDTH 15.1 % (11.5-14.5); WHITE BLOOD COUNT 7.5 K/mm3 (4.0-10.0)
[2016-06-28 07:00] LABS: CALCIUM LEVEL 8.1 MG/DL (8.8-10.2); CREATININE FOR GFR 6.43 MG/DL (0.55-1.02); GLOMERULAR FILTRATION RATE 6.9 (>45); MAGNESIUM LEVEL 2.3 MG/DL (1.8-2.4); POTASSIUM SERUM 4.4 MEQ/L (3.5-5.1)
[2016-06-28] MEDS: HumaLOG INSULIN (NovoLOG) PER UNIT SC SCH ×2 (08:03→12:00)
[2016-06-28] MEDS: LABETALOL 200 MG TAB PO SCH (08:04)
[2016-06-28] MEDS: CINACALCET 30 MG TAB (SENSIPAR) PO SCH (08:04)
[2016-06-28] MEDS: SUCROFERRIC OXYHYDROXIDE 500MG CHEW TAB (VELPHORO) PO SCH ×2 (08:04→12:05)
[2016-06-28 08:05] VITALS: BP 151/67
[2016-06-28] MEDS: SIMVASTATIN 40 MG TAB PO SCH (08:05)
[2016-06-28] MEDS: LOSARTAN 50 MG TAB PO SCH (08:05)
[2016-06-28] MEDS: PANTOPRAZOLE 40MG TAB (PROTONIX) PO SCH (08:05)
[2016-06-28] MEDS ORDERED: amLODIPine 10 MG TAB PO SCH (09:00)
--- NOTE | 2016-06-28 11:11 | IPN ---
DATE: 06/27/2016 The patient is being seen and examined at bedside. No acute events overnight. The patient continued to complain about some back pain, which initially resolved yesterday; however, it has come back. Per the patient, it was right below the left shoulder blade this time and the patient otherwise denies any fever or chills, any chest pain, trouble breathing, abdominal pain, nausea, vomiting, diarrhea or constipation. PHYSICAL EXAMINATION: VITAL SIGNS: Temperature 96.7, pulse 78, respirations 18 , blood pressure 144/68, oxygen was saturating at 97% on room air. GENERAL: The patient is an obese elderly female, who was alert, oriented times three, does not appear to be in distress, resting comfortably in the hemodialysis bed. HEENT: Normocephalic, atraumatic. Extraocular motor intact. Mucosa moist. NECK: Supple. No neck lymphadenopathy. CARDIOVASCULAR: Regular rate and rhythm. At least 3/6 systolic heart murmur, most audibly at the right substernal border. LUNGS: Clear to auscultation bilaterally. No wheezes, rales or rhonchi. ABDOMEN: Positive bowel sounds. Soft, nontender. There is no peritoneal signs or ecchymosis. BACK: Below the left shoulder blade the patient does have a mobile lesion, which is at least 3 cm x 4 cm and appears to be rather deep. EXTREMITIES: No edema, clubbing or cyanosis. SKIN: Warm and dry. NEURO: Cranial nerves II/XII intact. No focal neurological deficit. LABORATORY: White blood count (WBC) 7.2, hemoglobin 9.3, hematocrit 28.6, platelet count of 179. Erythrocyte sedimentation rate (ESR) was 108. Sodium 131, potassium 3.9, chloride 92, bicarbonate 29, BUN 69, creatine 8.81, glomerular filtration rate (GFR) was only 4.8, fasting glucose 197, calcium 7.2, magnesium 2.1, troponin today is 0.07, improved compared to day prior at 0.12. Acu-check glucose was 197, 281, 140. The patient's blood culture times one continued to show Staphylococcus aureus sensitive to clindamycin, gentamicin, Zyvox, oxacillin, tetracycline, Bactrim, vancomycin; resistant to erythromycin and penicillin. The patient's repeat blood culture times two shows no growth after 48 hours. Thoracic fluid Gram-stain result is pending. The patient had a ultrasound of her below left shoulder shows equivocal 3.8 x 3.8 x 0.8 cm lesion deep through the subcutaneous flap in the left scapular region, nonspecific. No cysts seen. If further characterization is desired, a CT or Magnetic Resonance Imaging (MRI) scanning could be performed. ASSESSMENT AND PLAN: 66-year-old female with past medical history of coronary artery disease, status post stent placement, peripheral vascular disease, also stent placement, end-stage renal disease on hemodialysis Wednesday, Wednesday, Wednesday, type 2 diabetes, hypertension, dyslipidemia, hemorrhoid, chronic anemia, iron deficiency presented with left upper back pain and also nausea and subjective fever, possible differential including gastroenteritis, pneumonia, spinal stenosis. CT scan appreciated showed some mural thickening of the left column, otherwise no tenderness to palpation. Magnetic Resonance Imaging (MRI) was appreciated shows no acute findings. Blood culture positive to rule out 1 out of 2 showed Staphylococcus aureus, continue new regimen as ordered. 1. Staphylococcus aureus bacteremia. We ordered two cultures. Infectious disease, Dr. Ellison has been consulted, we appreciate her help. Continue vancomycin. Repeat cultures have been negative. Continue to send C-reactive protein (CRP). 2. Left shoulder blade lesion. Ultrasound shows a solid mass. Will obtain further evaluation either inpatient or outpatient. At this point, the patient is not receptive to surgery. 3. Left-sided pleural effusion, status post thoracentesis likely transudative. Culture has been pending. Will followup. 4. Questionable urinary tract infection (UTI). Initially, received Rocephin. Urinalysis is very mild and currently will continue vancomycin. 5. End-stage renal disease on hemodialysis per nephrology, Dr. Hogan. Will appreciate his help. 6. Hyperkalemia. Resolved with hemodialysis. 7. [address] tissue on [address] of abdomen and pelvis. Colonoscopy 10 years ago. Rectal exam confirms soft tissue at around 6 o'clock. Recommend outpatient followup with gastroenterology at [place]. 8. Lactic acidosis. Continue to monitor. 9. Anemia of chronic disease with iron deficiency. Continue supplementation. Continue monitoring hemoglobin and hematocrit. 10. Hypertensive urgency. Continue blood pressure medications and continue hemodialysis. 11. Dyslipidemia. Continue statin. 12. Gpx-[id number] type 2 diabetes. Continue fingersticks and adjustment as needed. 13. Coronary artery disease, status post stent. Continue beta blockers, statin and aspirin. 14. Peripheral vascular disease with stent. Continue statin and aspirin 15. Deep vein thrombosis (DVT) prophylaxis with heparin subcutaneous. DISPOSITION: Will consult infectious disease on Wednesday for possible transesophageal echocardiogram. The transthoracic echocardiogram did not show any vegetations. Will continue to monitor the patient and continue to follow infectious disease and nephrology's recommendation. The patient has been discussed with the attending doctor, Dr. Howell. My preceptor for this patient encounter was Dr. Howell . The preceptor was physically present in the building during the encounter and was fully available. As needed, all aspects of the patient interview, examination, medical decision making process, and medical care plan development were reviewed and approved by the preceptor. The preceptor is aware and concurs with the plan as stated in the body of this note and will attest to such by his/her cosignature. I have both independently examined this patient as well as reviewed the note. I have discussed in detail with the resident the findings and plan of treatment as documented in the residents note. I will continue to follow the patient and offer further guidance to the patients care as necessary during this hospital stay. Leena HOBBS
[2016-06-28] MEDS: ONDANSETRON 4MG/2ML VIAL (J2405) IV PRN (12:06)
[2016-06-28] MEDS ORDERED: AMLO10TA2 PO (12:31)
[2016-06-28] MEDS ORDERED: CEPH500T PO (12:31)
[2016-06-28] MEDS ORDERED: PERCOCET PO (12:31)
--- NOTE | 2016-06-28 14:41 | EDDOCDS ---
Physician Documentation [facility] Name: Sylvia Aguirre Age: 66 yrs Sex: Female : 1950 Arrival Date: 06/24/2016 Time: 09:06 Bed 10 Private MD: Unknown, Family Dr Disposition: 06/24/16 15:18 Hospitalization ordered by Omid Valdez for Inpatient Admission. Preliminary diagnosis are Vomiting, Fever, unspecified. - Bed requested for PCU. - Status is Inpatient Admission. ck1 - Condition is Stable. - Problem is new. - Symptoms have improved. Historical: - Allergies: no known allergies; - Home Meds: 1. Felicita-Bobby 0.8 mg oral tab daily 2. glipizide 10 mg Oral tab 1 tab once daily 3. labetalol 200 mg Oral tab 2 tabs 2 times per day 4. Sensipar 60 mg oral tab 1 tab once daily 5. simvastatin 40 mg Oral tab 1 tab once daily 6. hydrochlorothiazide 25 mg Oral tab 1 tab once daily 7. losartan 100 mg oral tab 1 tab once daily 8. amlodipine 5 mg Oral tab 1 tab once daily - PMHx: Hypertension; High Cholesterol; Renal Failure with Dialysis; Diabetes - NIDDM: controlled; - PSHx: Stents, Coronary; Dialysis Graft Construction, Arm; ; left toe amputation; - Social history: Smoking status: Patient states was never smoker of tobacco. No barriers to communication noted, The patient speaks fluent Guyanese, Speaks appropriately for age. - Family history: Not pertinent. - : The pt / caregiver states he / she is not on anticoagulants. Home medication list is obtained from the patient. - Exposure Risk Screening:: None identified. Vital Signs: 06/24 09:08 BP 228 / 87; Pulse 99; Resp 18 S; Temp 99.6(O); Pulse Ox 93% on R/A; Weight 79.38 kg / dd6 175 lbs (R); Height 5 ft. 8 in. (172.72 cm) (R); 09:25 BP 184 / 80 RA (man/); mlb1 11:19 BP 201 / 86; Pulse 92; Resp 16; Temp 100.0(O); Pulse Ox 91% on 2 lpm NC; Pain 7/10; ck1 13:07 Pulse 96 MON; Pulse Ox 93% ; ck1 13:21 BP 155 / 83 (auto/); ck1 13:21 Resp 16; Temp 101.3; ck1 14:47 BP 196 / 82 (auto/); ck1 14:47 Pulse 92 MON; Pulse Ox 90% ; ck1 15:02 BP 192 / 80 (auto/); ck1 15:02 Pulse 92 MON; Pulse Ox 92% ; ck1 15:16 Pulse 90 MON; Pulse Ox 94% ; ck1 15:17 BP 178 / 77 (auto/); ck1 15:32 BP 177 / 58 (auto/); ck1 15:32 Pulse 92 MON; Pulse Ox 100% ; ck1 15:42 BP 175 / 73 (auto/); ck1 15:42 Pulse 92 MON; Pulse Ox 95% ; ck1 15:45 Temp 99.8(O); ck1 15:46 Resp 18; Temp 99.8(O); Pulse Ox 97% 2 lpm ; ck1 15:46 Pulse 90 MON; Pulse Ox 96% ; ck1 15:47 BP 195 / 80 (auto/); ck1 16:01 Pulse 86 MON; Pulse Ox 100% ; ck1 16:02 BP 172 / 77 (auto/); ck1 16:17 BP 162 / 72 (auto/); ck1 16:18 Pulse 88 MON; Pulse Ox 94% ; ck1 16:32 Pulse 86 MON; Pulse Ox 100% ; ck1 16:46 BP 159 / 73; Pulse 86; Resp 18; Temp 99.3(O); Pulse Ox 98% on 1 lpm NC; Pain 0/10; ck1 09:08 Body Mass Index 26.61 (79.38 kg, 172.72 cm) dd6 MDM: 09:55 Undress patient appropriately for examination ordered. sd1 09:56 Amylase Ordered. EDMS 09:56 Basic Metabolic Profile Ordered. EDMS 09:56 CBC with Diff Ordered. EDMS 09:56 Lipase Ordered. EDMS 09:56 Liver Profile Ordered. EDMS 09:56 NOTHING BY MOUTH+DIET ordered. EDMS 09:56 ECG WITH READING ER PHYS+CARDIAG ordered. EDMS 10:14 morphine 4 mg IVP every 15 minutes; Document pain score/vitals after each dose (Hold if sd1 SBP < 90mmHg) x2 ordered. 10:14 Ondansetron 4 mg IVP once ordered. sd1 10:14 CT ABD & PELVIS: No Contrast Ordered. EDMS 10:27 CBC with Diff Reviewed. sd1 10:48 Financial registration complete. pm4 10:54 Basic Metabolic Profile Reviewed. sd1 10:54 Liver Profile Reviewed. sd1 10:54 Amylase Reviewed. sd1 10:54 Lipase Reviewed. sd1 11:39 [facility] Payment Agreement was scanned into [employer] and attached to record. pm4 13:08 CT ABD & PELVIS: No Contrast Reviewed. sd1 13:24 Acetaminophen Tablet 650 mg PO once ordered. sd1 13:31 -Blood Culture (Adults Only), peripheral from different site, or from device/port/PICC sd1 etc. if present ordered. 13:31 Ondansetron 4 mg IVP once ordered. sd1 13:32 Lactic Acid (Owens tube on ice) Ordered. EDMS 13:32 -Blood Culture Ordered. EDMS 13:32 UA Ordered. EDMS 13:32 Urine Culture Ordered. EDMS 13:58 -Blood Culture (Adults Only), peripheral from different site, or from device/port/PICC jlf etc. if present complete. 14:00 BLOOD CULTURES Ordered. EDMS 15:03 Lactic Acid (Owens tube on ice) Reviewed. sd1 15:03 UA Reviewed. sd1 15:17 cefTRIAXone 1 grams IVPB once over 30 mins; dilute in 50mL of NS or D5W ordered. sd1 15:35 Admission / Observation Status ordered. EDMS 01/ 11:34 T-Sheet-- Draft Copy was scanned into [employer] and attached to record. gb Administered Medications: 06/24 10:25 Drug: morphine 4 mg [morphine 4 mg/mL intravenous cartridge (1 mL)] Route: IVP; Site: ck1 right antecubital; 11:19 Follow up: BP 201 / 86; Pulse 92 bpm; Resp 16 bpm; Temp 100.0 Oral; Pulse Ox 91% 2 lpm ck1 Nasal Cannula; Pain 10 Adult; Response: Confirmed pt not driving.; No Adverse Reaction; Pain is decreased 10:25 Drug: Ondansetron 4 mg [ondansetron HCl 2 mg/mL intravenous solution (2 mL)] Route: ck1 IVP; Site: right antecubital; 13:36 Drug: Ondansetron 4 mg [ondansetron HCl 2 mg/mL intravenous solution (2 mL)] Route: ck1 IVP; Site: right antecubital; 14:14 Drug: Acetaminophen 650 mg [acetaminophen 325 mg tablet (2 tabs)] Route: PO; hs1 15:45 Follow up: Temp 99.8 Oral; Response: Temperature is decreased ck1 15:32 Drug: cefTRIAXone 1 grams [ceftriaxone 1 gram solution for injection] Route: IVPB; ck1 Infused Over: 30 mins; Site: right antecubital; 16:47 Follow up: IV Status: Completed infusion ck1 Signatures: Dispatcher [employer] EDMS Zita Echeverria MD MD sd1 Cici Arredondo, Doctor Of Naturopathic Medicine Unit lbd Jovana Marie, Reg Reg gb Ronald Thibodeaux RN RN mlb1 Angelica Fyr RN RN ck1 Maurice Guillaume, TECHNICAL DELIVERY MANAGER TECHNICAL DELIVERY MANAGER jlf Nnamdi Jimenez, Reg Reg pm4 Janell Delgado RN hs1 The chart was reviewed and I authenticate all verbal orders and agree with the evaluation and treatment provided.Attachments: 11:39 [facility] Payment Agreement pm4 06/26 11:34 T-Sheet-- Draft Copy gb Chart Complete MTDD
--- NOTE | 2016-06-28 14:41 | EDDOCDS ---
Physician Documentation [facility] Name: Sylvia Aguirre Age: 66 yrs Sex: Female : 1950 Arrival Date: 06/24/2016 Time: 09:06 Bed 10 Private MD: Unknown, Family Dr Disposition: 06/24/16 15:18 Hospitalization ordered by Oimd Valdez for Inpatient Admission. Preliminary diagnosis are Vomiting, Fever, unspecified. - Bed requested for PCU. - Status is Inpatient Admission. ck1 - Condition is Stable. - Problem is new. - Symptoms have improved. Historical: - Allergies: no known allergies; - Home Meds: 1. Felicita-Bobby 0.8 mg oral tab daily 2. glipizide 10 mg Oral tab 1 tab once daily 3. labetalol 200 mg Oral tab 2 tabs 2 times per day 4. Sensipar 60 mg oral tab 1 tab once daily 5. simvastatin 40 mg Oral tab 1 tab once daily 6. hydrochlorothiazide 25 mg Oral tab 1 tab once daily 7. losartan 100 mg oral tab 1 tab once daily 8. amlodipine 5 mg Oral tab 1 tab once daily - PMHx: Hypertension; High Cholesterol; Renal Failure with Dialysis; Diabetes - NIDDM: controlled; - PSHx: Stents, Coronary; Dialysis Graft Construction, Arm; ; left toe amputation; - Social history: Smoking status: Patient states was never smoker of tobacco. No barriers to communication noted, The patient speaks fluent Israeli, Speaks appropriately for age. - Family history: Not pertinent. - : The pt / caregiver states he / she is not on anticoagulants. Home medication list is obtained from the patient. - Exposure Risk Screening:: None identified. Vital Signs: 06/24 09:08 BP 228 / 87; Pulse 99; Resp 18 S; Temp 99.6(O); Pulse Ox 93% on R/A; Weight 79.38 kg / dd6 175 lbs (R); Height 5 ft. 8 in. (172.72 cm) (R); 09:25 BP 184 / 80 RA (man/); mlb1 11:19 BP 201 / 86; Pulse 92; Resp 16; Temp 100.0(O); Pulse Ox 91% on 2 lpm NC; Pain 7/10; ck1 13:07 Pulse 96 MON; Pulse Ox 93% ; ck1 13:21 BP 155 / 83 (auto/); ck1 13:21 Resp 16; Temp 101.3; ck1 14:47 BP 196 / 82 (auto/); ck1 14:47 Pulse 92 MON; Pulse Ox 90% ; ck1 15:02 BP 192 / 80 (auto/); ck1 15:02 Pulse 92 MON; Pulse Ox 92% ; ck1 15:16 Pulse 90 MON; Pulse Ox 94% ; ck1 15:17 BP 178 / 77 (auto/); ck1 15:32 BP 177 / 58 (auto/); ck1 15:32 Pulse 92 MON; Pulse Ox 100% ; ck1 15:42 BP 175 / 73 (auto/); ck1 15:42 Pulse 92 MON; Pulse Ox 95% ; ck1 15:45 Temp 99.8(O); ck1 15:46 Resp 18; Temp 99.8(O); Pulse Ox 97% 2 lpm ; ck1 15:46 Pulse 90 MON; Pulse Ox 96% ; ck1 15:47 BP 195 / 80 (auto/); ck1 16:01 Pulse 86 MON; Pulse Ox 100% ; ck1 16:02 BP 172 / 77 (auto/); ck1 16:17 BP 162 / 72 (auto/); ck1 16:18 Pulse 88 MON; Pulse Ox 94% ; ck1 16:32 Pulse 86 MON; Pulse Ox 100% ; ck1 16:46 BP 159 / 73; Pulse 86; Resp 18; Temp 99.3(O); Pulse Ox 98% on 1 lpm NC; Pain 0/10; ck1 09:08 Body Mass Index 26.61 (79.38 kg, 172.72 cm) dd6 MDM: 09:55 Undress patient appropriately for examination ordered. sd1 09:56 Amylase Ordered. EDMS 09:56 Basic Metabolic Profile Ordered. EDMS 09:56 CBC with Diff Ordered. EDMS 09:56 Lipase Ordered. EDMS 09:56 Liver Profile Ordered. EDMS 09:56 NOTHING BY MOUTH+DIET ordered. EDMS 09:56 ECG WITH READING ER PHYS+CARDIAG ordered. EDMS 10:14 morphine 4 mg IVP every 15 minutes; Document pain score/vitals after each dose (Hold if sd1 SBP < 90mmHg) x2 ordered. 10:14 Ondansetron 4 mg IVP once ordered. sd1 10:14 CT ABD & PELVIS: No Contrast Ordered. EDMS 10:27 CBC with Diff Reviewed. sd1 10:48 Financial registration complete. pm4 10:54 Basic Metabolic Profile Reviewed. sd1 10:54 Liver Profile Reviewed. sd1 10:54 Amylase Reviewed. sd1 10:54 Lipase Reviewed. sd1 11:39 [facility] Payment Agreement was scanned into Fl[employer] and attached to record. pm4 13:08 CT ABD & PELVIS: No Contrast Reviewed. sd1 13:24 Acetaminophen Tablet 650 mg PO once ordered. sd1 13:31 -Blood Culture (Adults Only), peripheral from different site, or from device/port/PICC sd1 etc. if present ordered. 13:31 Ondansetron 4 mg IVP once ordered. sd1 13:32 Lactic Acid (Owens tube on ice) Ordered. EDMS 13:32 -Blood Culture Ordered. EDMS 13:32 UA Ordered. EDMS 13:32 Urine Culture Ordered. EDMS 13:58 -Blood Culture (Adults Only), peripheral from different site, or from device/port/PICC jlf etc. if present complete. 14:00 BLOOD CULTURES Ordered. EDMS 15:03 Lactic Acid (Owens tube on ice) Reviewed. sd1 15:03 UA Reviewed. sd1 15:17 cefTRIAXone 1 grams IVPB once over 30 mins; dilute in 50mL of NS or D5W ordered. sd1 15:35 Admission / Observation Status ordered. EDMS 01/ 11:34 T-Sheet-- Draft Copy was scanned into Flattr and attached to record. gb Administered Medications: 06/24 10:25 Drug: morphine 4 mg [morphine 4 mg/mL intravenous cartridge (1 mL)] Route: IVP; Site: ck1 right antecubital; 11:19 Follow up: BP 201 / 86; Pulse 92 bpm; Resp 16 bpm; Temp 100.0 Oral; Pulse Ox 91% 2 lpm ck1 Nasal Cannula; Pain 10 Adult; Response: Confirmed pt not driving.; No Adverse Reaction; Pain is decreased 10:25 Drug: Ondansetron 4 mg [ondansetron HCl 2 mg/mL intravenous solution (2 mL)] Route: ck1 IVP; Site: right antecubital; 13:36 Drug: Ondansetron 4 mg [ondansetron HCl 2 mg/mL intravenous solution (2 mL)] Route: ck1 IVP; Site: right antecubital; 14:14 Drug: Acetaminophen 650 mg [acetaminophen 325 mg tablet (2 tabs)] Route: PO; hs1 15:45 Follow up: Temp 99.8 Oral; Response: Temperature is decreased ck1 15:32 Drug: cefTRIAXone 1 grams [ceftriaxone 1 gram solution for injection] Route: IVPB; ck1 Infused Over: 30 mins; Site: right antecubital; 16:47 Follow up: IV Status: Completed infusion ck1 Signatures: Dispatcher [employer] EDMS Zita Echeverria MD MD sd1 Cici Arredondo, Business Developer Unit lbd Jovana Marie, Reg Reg gb Ronald Thibodeaux RN RN mlb1 Angelica Fry RN RN ck1 Maurice Guillaume, TAPPER SUPERVISOR TAPPER SUPERVISOR jlf Nnamdi Jimenez, Reg Reg pm4 Janell Delgado RN hs1 The chart was reviewed and I authenticate all verbal orders and agree with the evaluation and treatment provided.Attachments: 11:39 [facility] Payment Agreement pm4 06/26 11:34 T-Sheet-- Draft Copy gb Chart Complete MTDD
--- NOTE | 2016-06-28 14:41 | EDDOCDS ---
Nurse's Notes [facility] Name: Sylvia Aguirre Age: 66 yrs Sex: Female : 1950 Arrival Date: 06/24/2016 Time: 09:06 Bed 10 Private MD: Angel, Family Dr Diagnosis: Vomiting;Fever, unspecified Presentation: 06/24 09:15 Presenting complaint: Patient states: Low back pain and nausea began this am. Acute mlb1 neurological deficits are not present. Mechanism of Injury: No Mechanism of Injury. Adult Sepsis Screening: The patient does not have new or worsening altered mentation. Patient's respiratory rate is less than 22. Systolic blood pressure is greater than 100. Patient has a qSOFA score of 0- Negative Sepsis Screen. Suicide/Homicide risk assessment- the patient denies having any suicidal and/or homicidal ideations and does not present with any other emotional, behavioral or mental health complaints. Status: Patient is not a service center assistant or dependent. Transition of care: patient was not received from another setting of care. 09:15 Acuity: SG Level 3 mlb1 09:15 Method Of Arrival: Walkin/Carried/Asstd mlb1 Triage Assessment: 09:21 General: Appears in no apparent distress, Behavior is appropriate for age, cooperative. mlb1 Pain: Location: low back area Pain currently is 8 out of 10 on a pain scale. Pt Declines HIV testing. GI: Reports nausea, vomiting. Historical: - Allergies: no known allergies; - Home Meds: 1. Felicita-Bobby 0.8 mg oral tab daily 2. glipizide 10 mg Oral tab 1 tab once daily 3. labetalol 200 mg Oral tab 2 tabs 2 times per day 4. Sensipar 60 mg oral tab 1 tab once daily 5. simvastatin 40 mg Oral tab 1 tab once daily 6. hydrochlorothiazide 25 mg Oral tab 1 tab once daily 7. losartan 100 mg oral tab 1 tab once daily 8. amlodipine 5 mg Oral tab 1 tab once daily - PMHx: Hypertension; High Cholesterol; Renal Failure with Dialysis; Diabetes - NIDDM: controlled; - PSHx: Stents, Coronary; Dialysis Graft Construction, Arm; ; left toe amputation; - Social history: Smoking status: Patient states was never smoker of tobacco. No barriers to communication noted, The patient speaks fluent Swedish, Speaks appropriately for age. - Family history: Not pertinent. - : The pt / caregiver states he / she is not on anticoagulants. Home medication list is obtained from the patient. - Exposure Risk Screening:: None identified. Screenin:14 Screening information is obtained from the patient. Fall risk: No risks identified. ck1 Assistance ADL's: requires no assistance with activities of daily living. Abuse/DV Screen: The patient / caregiver reports he/she is: not in a situation that causes fear, pain or injury. Nutritional screening: No deficits noted. Advance Directives: Currently, there is no health care proxy. home support is adequate. Assessment: 10:14 General: Appears in no apparent distress, comfortable, Behavior is appropriate for age, ck1 cooperative. Pain: Location: right flank Pain currently is 8 out of 10 on a pain scale. Neurological: Level of Consciousness is awake, alert, obeys commands, Oriented to person, place, time. Respiratory: Respiratory effort is unlabored, Respiratory pattern is regular, symmetrical. GI: Reports nausea. Derm: Skin is intact, is healthy with good turgor, Skin is pink, warm & dry. Musculoskeletal: Circulation, motion, and sensation intact Range of motion intact in all extremities. 11:20 General: Appears to be sleeping. Behavior is appropriate for age, cooperative, quiet. ck1 Pain: Location: right flank Pain currently is 7 out of 10 on a pain scale. Neurological: Level of Consciousness is awake, alert, obeys commands, Oriented to person, place, time. Respiratory: Respiratory effort is unlabored, Respiratory pattern is regular, symmetrical. GI: Reports nausea, Denies vomiting. Derm: Skin is intact, Skin is pink, warm & dry. 12:20 General: Appears in no apparent distress, comfortable, Behavior is appropriate for age, ck1 cooperative, quiet. Neurological: Level of Consciousness is awake, alert, obeys commands, Oriented to person, place, time. Respiratory: Respiratory effort is unlabored, Respiratory pattern is regular, symmetrical. GI: Reports nausea, Denies vomiting. Derm: Skin is intact, is healthy with good turgor, Skin is pink, warm & dry. Musculoskeletal: Circulation, motion, and sensation intact Range of motion intact in all extremities. 14:16 General: Appears in no apparent distress, Behavior is appropriate for age, cooperative, hs1 Pt resting in stretcher tolerating Tylenol at present. States nausea dissipated. . 14:49 General: Appears in no apparent distress, to be sleeping. Behavior is appropriate for ck1 age, cooperative, quiet. Pain: Location: right flank Pain currently is 5 out of 10 on a pain scale. Neurological: Level of Consciousness is awake, alert, obeys commands, Oriented to person, place, time. Respiratory: Respiratory effort is unlabored, Respiratory pattern is regular, symmetrical. GI: Denies nausea. Derm: Skin is intact, Skin is pink, warm & dry. 15:47 General: Appears in no apparent distress, comfortable, Behavior is appropriate for age, ck1 cooperative. Pain: Location: right flank Pain currently is 5 out of 10 on a pain scale. Neurological: Level of Consciousness is awake, alert, obeys commands, Oriented to person, place, time. Cardiovascular: Rhythm is sinus rhythm Chest pain is denied. Respiratory: Respiratory effort is unlabored, Respiratory pattern is regular, symmetrical. GI: Reports anorexia, nausea. Derm: Skin is intact, Skin is pink, warm & dry. Musculoskeletal: Circulation, motion, and sensation intact Range of motion intact in all extremities. 16:49 General: Appears in no apparent distress, comfortable, Behavior is appropriate for age, ck1 cooperative. Pain: Denies pain. Neurological: Level of Consciousness is awake, alert, obeys commands, Oriented to person, place, time. Cardiovascular: Rhythm is sinus rhythm. Respiratory: Respiratory effort is unlabored, Respiratory pattern is regular, symmetrical. GI: No deficits noted. Derm: Skin is pink, warm & dry. Musculoskeletal: Circulation, motion, and sensation intact Range of motion intact in all extremities. Vital Signs: 09:08 BP 228 / 87; Pulse 99; Resp 18 S; Temp 99.6(O); Pulse Ox 93% on R/A; Weight 79.38 kg dd6 (R); Height 5 ft. 8 in. (172.72 cm) (R); 09:25 BP 184 / 80 RA (man/); mlb1 11:19 BP 201 / 86; Pulse 92; Resp 16; Temp 100.0(O); Pulse Ox 91% on 2 lpm NC; Pain 7/10; ck1 13:07 Pulse 96 MON; Pulse Ox 93% ; ck1 13:21 BP 155 / 83 (auto/); ck1 13:21 Resp 16; Temp 101.3; ck1 14:47 BP 196 / 82 (auto/); ck1 14:47 Pulse 92 MON; Pulse Ox 90% ; ck1 15:02 BP 192 / 80 (auto/); ck1 15:02 Pulse 92 MON; Pulse Ox 92% ; ck1 15:16 Pulse 90 MON; Pulse Ox 94% ; ck1 15:17 BP 178 / 77 (auto/); ck1 15:32 BP 177 / 58 (auto/); ck1 15:32 Pulse 92 MON; Pulse Ox 100% ; ck1 15:42 BP 175 / 73 (auto/); ck1 15:42 Pulse 92 MON; Pulse Ox 95% ; ck1 15:45 Temp 99.8(O); ck1 15:46 Resp 18; Temp 99.8(O); Pulse Ox 97% 2 lpm ; ck1 15:46 Pulse 90 MON; Pulse Ox 96% ; ck1 15:47 BP 195 / 80 (auto/); ck1 16:01 Pulse 86 MON; Pulse Ox 100% ; ck1 16:02 BP 172 / 77 (auto/); ck1 16:17 BP 162 / 72 (auto/); ck1 16:18 Pulse 88 MON; Pulse Ox 94% ; ck1 16:32 Pulse 86 MON; Pulse Ox 100% ; ck1 16:46 BP 159 / 73; Pulse 86; Resp 18; Temp 99.3(O); Pulse Ox 98% on 1 lpm NC; Pain 0/10; ck1 09:08 Body Mass Index 26.61 (79.38 kg, 172.72 cm) dd6 Vitals: 09:08 Log In Time: June 24, 2016 at 09:06. dd6 ED Course: 09:08 Patient visited by Dipesh Elizondo PCA. dd6 09:08 Unknown, Family Dr is Private Physician. dd6 09:08 Patient moved to Waiting dd6 09:09 Patient moved to Pre RCE dd6 09:15 Patient visited by Ronald Thibodeaux, YENNIFER. mlb1 09:16 Triage Initiated mlb1 09:21 Patient visited by Ronald Thibodeaux, YENNIFER. mlb1 09:21 Patient moved to Triage 1 mlb1 09:29 Patient moved to 10 ct3 09:52 Patient visited by Maurice Guillaume PCA. jlf 09:58 EKG done. (by ED staff). Reviewed by Zita Echeverria MD. jlf 10:02 Patient visited by Maurice Guillaume PCA. jlf 10:02 Patient visited by Maurice Guillaume PCA. jlf 10:07 Zita Echeverria MD is Attending Physician. sd1 10:07 Patient visited by Zita Echeverria MD. sd1 10:13 Amylase Sent. ck1 10:13 Basic Metabolic Profile Sent. ck1 10:13 CBC with Diff Sent. ck1 10:13 Lipase Sent. ck1 10:14 The patient / caregiver is instructed regarding the plan of care and ED course. ck1 10:14 Liver Profile Sent. ck1 10:15 Inserted saline lock: 20 gauge in right antecubital area and blood collected. The ck1 patient tolerated the procedure well. 10:24 Patient visited by Angelica Fry RN. ck1 10:40 Patient visited by Angelica Fry RN. ck1 11:18 Angelica Fry RN is Primary Nurse. ck1 11:19 Patient visited by Angelica Fry RN. ck1 11:20 O2 via nasal cannula \T\ 2L/min. ck1 11:36 Patient name changed from Sylvia\S\\S\Aguirre\S\ to Sylvia\S\ \S\Aguirre. EDMS 11:39 [facility] Payment Agreement was scanned into [employer] and attached to record. pm4 11:50 Patient visited by Angelica Fry RN. ck1 12:18 Patient visited by Maurice Guillaume PCA. jlf 12:37 CT ABD & PELVIS: No Contrast Returned. EDMS 12:47 Primary Nurse role handed off by Angelica Fry,YENNIFER mk4 12:52 Angelica Fry RN is Primary Nurse. ck1 12:52 Patient visited by Angelica Fry RN. ck1 13:08 Jelena Hogan MD is Referral Physician. sd1 13:25 No procedures done that require assistance. ck1 13:31 Patient visited by Angelica Fry RN. ck1 13:57 Urine Culture Sent. jml1 14:15 Patient visited by Angelica Fry RN. ck1 14:37 Patient visited by Aneglica Fry RN. ck1 14:43 BLOOD CULTURES Sent. jlf 14:49 Patient visited by Angelica Fry RN. ck1 14:49 O2 via nasal cannula \T\ 4L/min. ck1 15:05 Response to O2 therapy: Other 92% on 4L via NC. ck1 15:14 Patient visited by Angelica Fry RN. ck1 15:18 Omid Valdez DO is Hospitalizing Provider. sd1 15:45 Patient visited by Angelica Fry RN. ck1 06/26 11:34 T-Sheet-- Draft Copy was scanned into [employer] and attached to record. gb Administered Medications: 06/24 10:25 Drug: morphine 4 mg [morphine 4 mg/mL intravenous cartridge (1 mL)] Route: IVP; Site: ck1 right antecubital; 11:19 Follow up: BP 201 / 86; Pulse 92 bpm; Resp 16 bpm; Temp 100.0 Oral; Pulse Ox 91% 2 lpm ck1 Nasal Cannula; Pain 7/10 Adult; Response: Confirmed pt not driving.; No Adverse Reaction; Pain is decreased 10:25 Drug: Ondansetron 4 mg [ondansetron HCl 2 mg/mL intravenous solution (2 mL)] Route: ck1 IVP; Site: right antecubital; 13:36 Drug: Ondansetron 4 mg [ondansetron HCl 2 mg/mL intravenous solution (2 mL)] Route: ck1 IVP; Site: right antecubital; 14:14 Drug: Acetaminophen 650 mg [acetaminophen 325 mg tablet (2 tabs)] Route: PO; hs1 15:45 Follow up: Temp 99.8 Oral; Response: Temperature is decreased ck1 15:32 Drug: cefTRIAXone 1 grams [ceftriaxone 1 gram solution for injection] Route: IVPB; ck1 Infused Over: 30 mins; Site: right antecubital; 16:47 Follow up: IV Status: Completed infusion ck1 Order Results: Lab Order: Amylase; SPEC'M 06/24/16 10:09 Test: AMYLASE; Value: 35; Range: 25-115; Units: U/L; Status: F Lab Order: Basic Metabolic Profile; SPEC'M 06/24/16 10:09 Test: GLUCOSE, FASTING; Value: 203; Range: 80-110; Abnormal: Above high normal; Units: MG/DL; Status: F Test: BLOOD UREA NITROGEN; Value: 56; Range: 7-18; Abnormal: Above high normal; Units: MG/DL; Status: F Test: CREATININE FOR GFR; Value: 9.13; Range: 0.55-1.02; Abnormal: Above high normal; Units: MG/DL; Status: F Test: GLOMERULAR FILTRATION RATE; Value: 4.6; Range: >45; Abnormal: Below low normal; Status: F Test: SODIUM LEVEL; Value: 136; Range: 136-145; Units: MEQ/L; Status: F Test: POTASSIUM SERUM; Value: 5.7; Range: 3.5-5.1; Abnormal: Above high normal; Units: MEQ/L; Status: F Test: CHLORIDE LEVEL; Value: 98; Range: 98-107; Units: MEQ/L; Status: F Test: CARBON DIOXIDE LEVEL; Value: 26; Range: 21-32; Units: MEQ/L; Status: F Test: ANION GAP; Value: 12; Range: 8-16; Units: MEQ/L; Status: F Test: CALCIUM LEVEL; Value: 8.7; Range: 8.8-10.2; Abnormal: Below low normal; Units: MG/DL; Status: F Test Note: ; Units are mL/min/1.73 m2 Chronic Kidney Disease Staging per NKF: Stage I & II GFR >=60 Normal to Mildly Decreased Stage III GFR 30-59 Moderately Decreased Stage IV GFR 15-29 Severely Decreased Stage V GFR <15 Very Little GFR Left ESRD GFR <15 on DIRECTOR TRANSLATION Lab Order: CBC with Diff; SPEC'06/24/16 10:09 Test: WHITE BLOOD COUNT; Value: 11.3; Range: 4.0-10.0; Abnormal: Above high normal; Units: K/mm3; Status: F Test: RED BLOOD COUNT; Value: 3.48; Range: 4.00-5.40; Abnormal: Below low normal; Units: M/mm3; Status: F Test: HEMOGLOBIN; Value: 11.3; Range: 12.0-16.0; Abnormal: Below low normal; Units: g/dl; Status: F Test: HEMATOCRIT; Value: 34.8; Range: 36.0-47.0; Abnormal: Below low normal; Units: %; Status: F Test: MEAN CORPUSCULAR VOLUME; Value: 99.8; Range: 80.0-96.0; Abnormal: Above high normal; Units: fl; Status: F Test: MEAN CORPUSCULAR HEMOGLOBIN; Value: 32.3; Range: 27.0-33.0; Units: pg; Status: F Test: MEAN CORPUSCULAR HGB CONC; Value: 32.4; Range: 32.0-36.5; Units: g/dl; Status: F Test: RED CELL DISTRIBUTION WIDTH; Value: 16.1; Range: 11.5-14.5; Abnormal: Above high normal; Units: %; Status: F Test: PLATELET COUNT, AUTOMATED; Value: 203; Range: 150-450; Units: k/mm3; Status: F Test: NEUTROPHILS %; Value: 90.4; Range: 36.0-66.0; Abnormal: Above high normal; Units: %; Status: F Test: LYMPH %; Value: 0.8; Range: 24.0-44.0; Abnormal: Below low normal; Units: %; Status: F Test: MONO %; Value: 4.9; Range: 0.0-5.0; Units: %; Status: F Test: EOS %; Value: 1.1; Range: 0.0-3.0; Units: %; Status: F Test: BASO %; Value: 2.3; Range: 0.0-1.0; Abnormal: Above high normal; Units: %; Status: F Test: LARGE UNSTAINED CELL %; Value: 0.5; Range: 0.0-4.0; Units: %; Status: F Test: NEUTROPHILS #; Value: 10.3; Range: 1.8-7.7; Abnormal: Above high normal; Units: K/mm3; Status: F Test: LYMPH #; Value: 0.1; Range: 1.5-4.5; Abnormal: Below low normal; Units: K/mm3; Status: F Test: MONO #; Value: 0.6; Range: 0.0-0.8; Units: K/mm3; Status: F Test: EOS #; Value: 0.1; Range: 0.0-0.50; Units: K/mm3; Status: F Test: BASO #; Value: 0.3; Range: 0.0-0.2; Abnormal: Above high normal; Units: K/mm3; Status: F Test: LARGE UNSTAINED CELL #; Value: 0.1; Range: 0.0-0.4; Units: K/mm3; Status: F Lab Order: Lipase; 06/24/16 10:09 Test: LIPASE; Value: 119; Range: 73-393; Units: U/L; Status: F Lab Order: Liver Profile; 06/24/16 10:09 Test: AST/SGOT; Value: 12; Range: 15-37; Abnormal: Below low normal; Units: U/L; Status: F Test: ALT/SGPT; Value: 22; Range: 12-78; Units: U/L; Status: F Test: ALKALINE PHOSPHATASE; Value: 177; Range: 45-117; Abnormal: Above high normal; Units: U/L; Status: F Test: BILIRUBIN,TOTAL; Value: 0.6; Range: 0.2-1.0; Units: MG/DL; Status: F Test: BILIRUBIN,DIRECT; Value: 0.2; Range: 0.0-0.2; Units: MG/DL; Status: F Test: TOTAL PROTEIN; Value: 8.1; Range: 6.4-8.2; Units: GM/DL; Status: F Test: ALBUMIN; Value: 3.7; Range: 3.2-5.2; Units: GM/DL; Status: F Test: ALBUMIN/GLOBULIN RATIO; Value: 0.84; Range: 1.00-1.93; Abnormal: Below low normal; Status: F Lab Order: Lactic Acid (Owens tube on ice); 06/24/16 13:49 Test: LACTIC ACID LEVEL, LACTATE; Value: 2.1; Range: 0.4-2.0; Abnormal: Above high normal; Units: MMOL/L; Status: F Lab Order: UA; 06/24/16 13:49 Test: APPEARANCE, URINE; Value: CLEAR; Range: CLEAR; Status: F Test: COLOR, URINE; Value: YELLOW; Range: YELLOW; Status: F Test: PH,URINE; Value: 8.0; Range: 5.0-9.0; Units: UNITS; Status: F Test: SPECIFIC GRAVITY URINE AUTO; Value: 1.007; Range: 1.002-1.035; Status: F Test: PROTEIN, URINE AUTO; Value: 3+; Range: NEGATIVE; Abnormal: Above high normal; Units: mg/dL; Status: F Test: GLUCOSE, URINE (UA) AUTO; Value: 3+; Range: NEGATIVE; Abnormal: Above high normal; Units: mg/dL; Status: F Test: KETONE, URINE AUTO; Value: NEGATIVE; Range: NEGATIVE; Units: mg/dL; Status: F Test: UROBILINOGEN, URINE AUTO; Value: 0.2; Range: 0.0-2.0; Units: mg/dL; Status: F Test: BILIRUBIN, URINE AUTO; Value: NEGATIVE; Range: NEGATIVE; Status: F Test: NITRITE, URINE AUTO; Value: NEGATIVE; Range: NEGATIVE; Status: F Test: LEUKOCYTE ESTERASE, URINE AUTO; Value: TRACE; Range: NEGATIVE; Abnormal: Above high normal; Status: F Test: BLOOD, URINE BLOOD; Value: NEGATIVE; Range: NEGATIVE; Status: F Test: WBC, URINE AUTO; Value: 1; Range: 0-3; Units: /HPF; Status: F Test: RBC, URINE AUTO; Value: 1; Range: 0-3; Units: /HPF; Status: F Test: BACTERIA, URINE AUTO; Value: 1+; Range: NEGATIVE; Abnormal: Above high normal; Status: F Test: SQUAMOUS EPITHELIAL CELL UR AU; Value: 3; Range: 0-6; Units: /HPF; Status: F Test: HYALINE CAST, URINE AUTO; Value: 0; Range: 0-1; Units: /LPF; Status: F Radiology Order: CT ABD & PELVIS: No Contrast Test: CT ABD & PELVIS: No Contrast REASON FOR EXAMINATION: right FP ?stone; CT abdomen pelvis without contrast 06/24/2016; ; Indication right flank pain, possible kidney stone; ; Comparison: None; ; Findings: There are moderate right and small left basilar pleural effusions.; There is bibasilar compressive atelectasis, right greater than left. There is; pulmonary venous hypertension in the included portions of the lungs. Cardiac; silhouette is borderline in size and there are moderate coronary artery; calcifications. There is also calcification versus prosthetic valve within the; aortic root, incompletely included in view.; ; Liver is enlarged 21.4 cm cranial caudal dimension, without fatty infiltration or; focal lesion. Spleen, pancreas gallbladder are unremarkable. There is no; biliary dilatation. Adrenal glands are normal. Diffuse atherosclerotic changes; noted in the aorta, mesenteric ,and renal arteries consistent with history of; chronic renal failure. Kidneys are moderately atrophic bilaterally and there are; multiple bilateral renal cortical cysts. There is no hydronephrosis bilaterally; or obstructing ureteral calculi. No pathologically enlarged retroperitoneal; nodes. Stomach, small bowel are within normal limits. Appendix is not; visualized and may be surgically absent.; ; Bladder is contracted uterus is absent mild mural thickening is seen majority of; the left colon and within the rectum with some sparing of rectosigmoid colon this; is most likely secondary to some/under distension and less likely colitis. Soft; tissue prominence is seen within the rectum/anus of 3 cm diameter. There is no; free air or ascites; ; Impression:; ; Small to moderate right and small left pleural effusions, bibasilar atelectasis,; right greater than left. Pulmonary t venous hypertension; ; Kidneys without hydronephrosis or obstructing ureteral calculi bilaterally.; There is moderate bilateral renal cortical atrophy and multiple bilateral renal; cysts some of which are complex for which ultrasound evaluation may be; considered.; ; Mild mural thickening seen in the majority of left colon is most compatible with; spasm/under distension. Mild colitis considered less likely. 3 cm area of soft; tissue prominence within the rectum for which clinical follow-up is recommended.; ; Hepatomegaly, liver 21.2 cm in length.; ; Case discussed with Dr. Correia in the ED on 06/24/16 at 1140 am.; ; ; Signed by; Yuliya Mccabe MD 06/24/2016 11:46 A; Outcome: 10:40 CT Study completed. ck1 13:09 Discharge ordered by Provider. sd1 15:18 Decision to Hospitalize by Provider. sd1 16:17 Admission hand-off: Report Faxed Fax receipt verified by Diaz Solano RN. ck1 16:48 Discharge Assessment:. The following High Risk Discharge criteria are identified: None. ck1 Admitted to PCU accompanied by nurse, accompanied by tech, via stretcher, with oxygen, on monitor, with chart. Condition: stable. 16:48 Property :Personal belongings accompany Pt. [facility] 16:48 Discharge Assessment: patient administered narcotics - yes. Patient was admitted to the [facility] hospital or transferred to another facility. 16:49 Patient left the ED. [facility] Signatures: Dispatcher [employer] EDMS Zita Echeverria MD MD sd1 Jovana Marie, Reg Reg gb Ronald Thibodeaux RN RN mlb1 Angelica FryRN RN ck1 Dipesh Elizondo, INSURANCE CONSULTANT INSURANCE CONSULTANT dd6 Janell Delgado RN RN hs1 Clementine Vincent, INSURANCE CONSULTANT INSURANCE CONSULTANT ct3 Tray Gage jml1 Jodi Paul RN RN mk4 Maurice Guillaume, INSURANCE CONSULTANT INSURANCE CONSULTANT jlf Nnamdi Jimenez, Reg Reg pm4 Corrections: (The following items were deleted from the chart) 16:48 13:25 Discharge Assessment: Patient awake, alert and oriented x 3. No cognitive and/or ck1 functional deficits noted. Patient verbalized understanding of disposition instructions. patient administered narcotics - yes. Pt provided with safe discharge [facility] 16:48 13:25 Property :Personal belongings accompany Pt. [place] [id number] :48 13:25 Condition: stable [facility] ck 16:48 13:25 The following High Risk Discharge criteria are identified: None. Discharged to [facility] home ambulatory, with family, [facility] :48 13:25 Discharge instructions given to patient, Instructed on discharge instructions, [facility] follow up and referral plans. medication usage, Demonstrated understanding of instructions, medications, Pt was receptive of discharge instructions/ teaching. 16:49 16:48 Discharge Assessment: patient administered narcotics - no [place] [id number] Chart Complete MTDD
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
--- NOTE | 2016-06-29 12:30 | IPN ---
DATE OF SERVICE: 06/28/2016 SUBJECTIVE: Patient was seen and examined at the bedside today in the morning. She feels much better. Her chest pain and back pain is improved. Her repeat cultures are negative, and she is afebrile at this time. REVIEW OF SYSTEMS: Patient denies any fever, chills, rigors, headache, nausea, vomiting. Her chest pain and back pain is improved. She denies any shortness of breath. She denies any pain in abdomen, constipation or diarrhea. All of the review of system is negative. OBJECTIVE: VITAL SIGNS: Temperature is 99 degrees Fahrenheit, blood pressure is 151/67, pulse is 77, respiratory rate of 18, saturating 90% on room air. INTAKE AND OUTPUT: Urine output recorded as 200 mL yesterday. She got hemodialysis done and ultrafiltration was 3 liter with hemodialysis. Weight in the bed scale recorded was 82.3 kg. PHYSICAL EXAMINATION: GENERAL: Patient is awake, alert, oriented times three, laying in bed, no apparent distress. HEAD/NECK EXAM: Extraocular muscles intact. Pupils equal, round, reactive to light. Neck is supple. There is no jugular venous distention (JVD). CARDIOVASCULAR: S1, S2, regular rate. No murmur, rub or gallop. RESPIRATORY: Chest is clear to auscultation bilaterally. Bilateral equal air entry. No rales or rhonchi. ABDOMEN: Soft. Positive bowel sounds. Nontender. No ascites. No organomegaly. EXTREMITIES: No clubbing or cyanosis. Pulses are 2+. CENTRAL NERVOUS SYSTEM (DIETETICS TEACHER): No focal neurological deficit. Power is 5/5 in all extremities. PSYCHIATRIC: Normal mood and affect. LABORATORY REVIEW: CBC showed WBC 7.5, hemoglobin 9.6, platelets 235. BMP showed sodium 134, potassium 4.4, chloride 94, bicarbonate 26, BUN 37, creatinine 6.4, calcium 8.1. MICROBIOLOGY: Gram stain of the thoracentesis fluid was negative. Blood cultures repeat were negative. CURRENT MEDICATIONS: Patient's medications were all reviewed by me. There is no change in the medication today as compared with yesterday. ASSESSMENT: 66-year-old female with past medical history of coronary artery disease status post stents, peripheral vascular disease, end-stage renal disease, on hemodialysis every Wednesday, Wednesday, Wednesday, diabetes mellitus type 2, hypertension, admitted this time with back pain, fever, and 1 out of 2 blood cultures positive. Nephrology service following the patient for management of end-stage renal disease. PLAN: 1. End-stage renal disease. Patient's regular dialysis day is tomorrow. She can be dialyzed as outpatient tomorrow. No urgent need for hemodialysis today. 2. Staphylococcus aureus bacteremia. Patient's 1 out of 2 culture was positive. She was already given vancomycin. Repeat cultures are negative. Echocardiogram did not show any vegetation. Thoracentesis was also done and it was all transudative and there was no infection. No further workup is required at this time. 3. Back pain. CAT scan of the thoracic region was normal. CAT scan of the lumbosacral (LS) spine showed disc herniation at L5-S1 area. Continue the pain medications at this time. 4. Anemia and end-stage renal disease. Patient was given Aranesp with hemodialysis. No urgent need of blood transfusion. Rest of the anemia management as per outpatient protocol. 5. Hypertension. Blood pressure is better controlled today. Continue current dose of amlodipine 10 mg by mouth daily, labetalol 400 mg by mouth twice a day, losartan 100 mg by mouth daily. DISCHARGE PLANNING: It is okay to discharge the patient from nephrology standpoint. Patient can be dialyzed as outpatient tomorrow morning. Plan of care was discussed with Stefania Mcdonnell MD.
--- NOTE | 2016-07-01 08:06 | DSES ---
DATE OF ADMISSION: 06/25/2016 DATE OF DISCHARGE: 06/28/2016 PRIMARY CARE PROVIDER: Dr. Terry in [place]. DISCHARGE DIAGNOSES: Methicillin-sensitive staphylococcus aureus (MSSA) bacteremia. Left upper back pain. Underlying possible lipoma just above the left shoulder blade. End stage renal disease on hemodialysis. Diastolic congestive heart failure. Severe pulmonary hypertension. Chronic right sided heart failure. Pleural effusion, drained, transudative in type. Anemia of chronic renal disease. Hypertension. Soft tissue prominence in the rectum 3 cm area which needs to be followed up as an outpatient. Coronary artery disease status post stent placement. Diabetes. Hypertension. Hyperlipidemia. Hemorrhoids. Chronic low back pain, disc bulge and canal stenosis at L4, L5 and S1 levels. DISCHARGE MEDICATIONS: - amlodipine 10 mg by mouth daily - cephalexin 500 mg by mouth twice daily - oxycodone/acetaminophen one tablet by mouth every 8 hours as needed pain - Sensipar 60 mg by mouth daily - glipizide 10 mg by mouth daily - labetalol 400 mg by mouth daily - Losartan 100 mg by mouth daily - Velphoro 1500 mg by mouth with meals - Gynovite one tablet by mouth daily - simvastatin 40 mg by mouth daily - [id number] mg at bedtime HOSPITAL COURSE: This is a 66-year-old female who presented to the hospital with complaints of left upper back pain and nausea. The pain had initially started in the mid back and then radiated to the left upper back which worsened over 2 days time associated with nausea. Patient did also have big left upper abdominal discomfort for about a week prior to the development of nausea and left back pain. Patient was initially thought to have urinary tract infection, however, urine culture came back positive. However, patient's blood culture did come back 1 out of 4 bottles positive for Methicillin-sensitive staphylococcus aureus (MSSA). Patient was initially treated with vancomycin but with blood culture back, patient was shifted to cephalexin on discharge. Patient continued to receive routine hemodialysis as an inpatient. Patient's CRP was also persistently elevated. In the hospital, patient had an echocardiogram which was negative for vegetations but did show diastolic dysfunction, pulmonary hypertension and inferior vena caval congestion. Decrease Xarelto. She had chest x-ray which showed pleural effusion right greater than left so the right pleural effusion was tapped. The pleural fluid was lymphocytic in nature and exudative. However, the gram stain culture was negative. Patient also had CT scan of the lumbar and thoracic spine. In CT of thoracic spine, there was no disc bulge or herniation and in the CT of the lumbar spine, there was minimal central canal stenosis at L4-L5 level secondary to disc bulge and facet hypertrophy. There was disc bulge at L5-S1 level. Patient had an ultrasound of the back done in the region of pain and that is just above the left shoulder blade and there was a solid 3.8 mass deep to the subcutaneous tissue fat in the left scapular region. After 3 or 4 days of treatment, patient continued to improved with her nausea resolved, her back pain was controlled with Percocet. On the day of discharge, patient was back to her baseline functional status without any symptoms with vitals stable. PHYSICAL EXAMINATION: Vital signs: Blood pressure 151/67, pulse 77, respiratory rate 20, pulse oximetry 91% on room air. General: Patient awake, alert, oriented times three lying down in bed in no acute distress. HEENT: Normocephalic, atraumatic. Moist mucous membranes. Anicteric eyes. Chest: Clear to auscultation. Cardiovascular: S1, S2, regular. No rub, murmur or gallop. Abdomen: Obese, nontender, bowel sounds present. Extremities: No edema. LABORATORY DATA: Sodium 134, potassium 4.4, chloride 94, bicarbonate 26, BUN 37, creatinine 6.4. Glucose 180. CRP 18.5. Coagulation studies 1.37. UA is clean. Blood cultures 1 out of 3 were positive for Methicillin-sensitive staphylococcus aureus (MSSA). Urine culture negative. Flu antigen negative. DISPOSITION: Patient is discharged home in stable condition. DISCHARGE INSTRUCTIONS: Patient to followup with hemodialysis as per outpatient dialysis schedule. Regular diet. Activity as tolerated.
== END 2016-06-28 14:25 | disposition home or self-care (01) | DRG 391 ==
LOC: M ED 09:06 → M ED INP 15:32 → M PCU 16:56 → OBSVTOIN 06-25 13:00 → M MSPAV 06-27 17:04
PROVIDERS: ADMIT Hospitalist; ATTEND Internal Medicine Nephrology
PROC: 5A1D60Z (ICD-10-PCS; principal; 2016-06-25)
PROC: 0W993ZX Drainage of Right Pleural Cavity, Percutaneous Approach, Diagnostic (ICD-10-PCS; 2016-06-26)
DX: K52.9 Noninfective gastroenteritis and colitis, unspecified (principal); N18.6 End stage renal disease; I12.0 Hypertensive chronic kidney disease with stage 5 chronic kidney disease or end stage renal disease; E87.2 Acidosis; J90 Pleural effusion, not elsewhere classified; R78.81 Bacteremia; I50.32 Chronic diastolic (congestive) heart failure; I25.10 Atherosclerotic heart disease of native coronary artery without angina pectoris; E11.9 Type 2 diabetes mellitus without complications; E78.5 Hyperlipidemia, unspecified; K64.8 Other hemorrhoids; I73.9 Peripheral vascular disease, unspecified; D63.1 Anemia in chronic kidney disease; Z79.84 Long term (current) use of oral hypoglycemic drugs; E87.5 Hyperkalemia; I16.0 Hypertensive urgency; M48.06 Spinal stenosis, lumbar region; E66.9 Obesity, unspecified; M51.26 Other intervertebral disc displacement, lumbar region; I27.2 Other secondary pulmonary hypertension; I35.0 Nonrheumatic aortic (valve) stenosis; I36.1 Nonrheumatic tricuspid (valve) insufficiency; D17.39 Benign lipomatous neoplasm of skin and subcutaneous tissue of other sites; Z68.27 Body mass index [BMI] 27.0-27.9, adult; Z95.5 Presence of coronary angioplasty implant and graft; Z98.62 Peripheral vascular angioplasty status; Z89.422 Acquired absence of other left toe(s); Z79.899 Other long term (current) drug therapy; Z99.2 Dependence on renal dialysis